=== PATIENT | male | born 1945 | race American Indian/Alaskan Native ===

== ENCOUNTER 2016-10-05 12:48 | Emergency (ER) | payer MEDICARE ==
--- NOTE | 2016-10-05 13:59 | Emergency Department Report ---
Chief Complaint: Medical Clearance Stated Complaint: PNEUMONIA Time Seen by Provider: 10/05/16 13:53 - HPI History of Present Illness: 71-year-old male comes in by referral of Dr. Shahab Flower for diagnosis of pneumonia with pleuritic Chest pain, patient has a past medical history of CVA diabetes and hypertension. Patient and reports that he has been having cough chest pain with cough shortness of breathing. Denies any fever or chills. - Exam Vital Signs: Vital Signs 10/05/16 13:27 Temperature 98.0 F Pulse Rate 73 Respiratory 20 Rate Blood Pressure 148/85 O2 Sat by Pulse 98 Oximetry Physical Exam: Patient is alert and oriented, respiratory clear to auscultation pulse cardiovascular but the rate rhythm there is no chest wall tenderness MSE screening note: Focused history and physical exam performed. Due to findings the following was ordered: Patient's been evaluated by MSE provider. We will order a chest x-ray CBC BMP patient be evaluated in the main ER ED Disposition for MSE Condition: Stable
[2016-10-05 15:04] LABS: Hematocrit 41.2 % (35.5-45.6); Hemoglobin 14.3 gm/dl (11.8-15.2); Mean Corpuscular HGB Conc 35 % (32-34); Mean Corpuscular Hemoglobin 30 pg (28-32); Mean Corpuscular Volume 86 fl (84-94); Platelet Count 183 K/mm3 (140-440); Red Blood Count 4.79 M/mm3 (3.65-5.03); Red Cell Distribution Width 13.6 % (13.2-15.2)
[2016-10-05 15:11] LABS: BUN/Creatinine Ratio 10.62; Calcium 8.7 mg/dL (8.4-10.2); Chloride 91.9 mmol/L (98-107); Potassium 3.1 mmol/L (3.6-5.0)
--- NOTE | 2016-10-05 15:11 | XRay Report ---
CHEST X-RAY, 2 VIEWS History: Shortness of breath, cough. Findings: Subtle infiltrate is suspected in the middle lobe. Trace right pleural effusion is also identified. The left lung is clear. Normal heart and mediastinal structures. Normal bony thorax. Impression: Subtle right middle lobe opacity and trace right pleural effusion. Correlate for early pneumonia.
--- NOTE | 2016-10-06 00:43 | Emergency Department Report ---
ED General Adult HPI - General Chief complaint: Medical Clearance Stated complaint: PNEUMONIA Time Seen by Provider: 10/05/16 13:53 Source: patient, family Mode of arrival: Wheelchair Limitations: Physical Limitation - History of Present Illness Initial comments: Patient is a 71-year-old male with history of hypertension, diabetes, CVA with right-sided residual weakness using a walker at baseline resulting today because of cough. Patient went and saw his primary care doctor who heard an abnormality on his lung exam and sent him here for evaluation. Patient has not been having any fevers but yesterday had some chills, has a cough that is occasionally productive. Also has chest pain on the right side when he coughs. Severity scale (0 -10): 0 - Related Data Previous Rx's Medication Instructions Recorded Last Taken Type Aspirin [Aspirin TAB] 325 mg PO QDAY #30 tablet 05/30/15 Unknown Rx Simvastatin [Zocor TAB] 20 mg PO QHS #30 tablet 05/30/15 Unknown Rx Acetaminophen [Acetaminophen TAB] 650 mg PO Q4H PRN #1 tablet 06/10/15 Unknown Rx Bisacodyl [Dulcolax suppos] 10 mg WI QDAY PRN #1 supp.rect 06/10/15 Unknown Rx Enoxaparin [Lovenox] 40 mg SUB-Q QDAY syringe 06/10/15 Unknown Rx Famotidine [Pepcid] 20 mg PO BID tablet 06/10/15 Unknown Rx Hydrochlorothiazide [HCTZ] 25 mg PO QDAY capsule 06/10/15 Unknown Rx Insulin Aspart Prot/Aspart 10 units SUB-Q QPMDIAB units 06/10/15 Unknown Rx [NovoLOG Mix 70/30 VIAL] Insulin Aspart Prot/Aspart 20 units SUB-Q QAMDIAB units 06/10/15 Unknown Rx [NovoLOG Mix 70/30 VIAL] Insulin Glulisine [Apidra] 0 units SUB-Q ACHS units 06/10/15 Unknown Rx Lisinopril [Zestril TAB] 40 mg PO QDAY tablet 06/10/15 Unknown Rx Metoprolol [Lopressor TAB] 50 mg PO BID tablet 06/10/15 Unknown Rx Sennosides Tab [Senokot] 8.6 mg PO Q12H PRN #1 tablet 06/10/15 Unknown Rx hydrALAZINE [Apresoline TAB] 100 mg PO TID tab 06/10/15 Unknown Rx Acetaminophen [Acetaminophen TAB] 650 mg PO Q6HR PRN #16 tablet 10/06/16 Unknown Rx Levofloxacin [Levaquin TAB] 750 mg PO QDAY #6 tablet 10/06/16 Unknown Rx Allergies Allergy/AdvReac Type Severity Reaction Status Date / Time No Known Allergies Allergy Verified 05/25/15 18:15 ED Review of Systems ROS: Stated complaint: PNEUMONIA Other details as noted in HPI Comment: All other systems reviewed and negative Constitutional: chills. denies: fever Respiratory: cough. denies: shortness of breath Cardiovascular: chest pain. denies: palpitations Gastrointestinal: denies: vomiting Genitourinary: denies: frequency Skin: denies: rash ED Past Medical Hx - Past Medical History Hx Hypertension: Yes Hx CVA: Yes Hx Diabetes: Yes Hx HIV: No - Social History Smoking Status: Never Smoker Substance Use Type: None - Medications Home Medications: Home Medications Medication Instructions Recorded Confirmed Last Taken Type Aspirin [Aspirin TAB] 325 mg PO QDAY #30 tablet 05/30/15 05/30/15 Unknown Rx Simvastatin [Zocor TAB] 20 mg PO QHS #30 tablet 05/30/15 05/30/15 Unknown Rx Acetaminophen [Acetaminophen TAB] 650 mg PO Q4H PRN #1 tablet 06/10/15 Unknown Rx Bisacodyl [Dulcolax suppos] 10 mg WI QDAY PRN #1 supp.rect 06/10/15 Unknown Rx Enoxaparin [Lovenox] 40 mg SUB-Q QDAY syringe 06/10/15 Unknown Rx Famotidine [Pepcid] 20 mg PO BID tablet 06/10/15 Unknown Rx Hydrochlorothiazide [HCTZ] 25 mg PO QDAY capsule 06/10/15 Unknown Rx Insulin Aspart Prot/Aspart 10 units SUB-Q QPMDIAB units 06/10/15 Unknown Rx [NovoLOG Mix 70/30 VIAL] Insulin Aspart Prot/Aspart 20 units SUB-Q QAMDIAB units 06/10/15 Unknown Rx [NovoLOG Mix 70/30 VIAL] Insulin Glulisine [Apidra] 0 units SUB-Q ACHS units 06/10/15 Unknown Rx Lisinopril [Zestril TAB] 40 mg PO QDAY tablet 06/10/15 Unknown Rx Metoprolol [Lopressor TAB] 50 mg PO BID tablet 06/10/15 Unknown Rx Sennosides Tab [Senokot] 8.6 mg PO Q12H PRN #1 tablet 06/10/15 Unknown Rx hydrALAZINE [Apresoline TAB] 100 mg PO TID tab 06/10/15 Unknown Rx Acetaminophen [Acetaminophen TAB] 650 mg PO Q6HR PRN #16 tablet 10/06/16 Unknown Rx Levofloxacin [Levaquin TAB] 750 mg PO QDAY #6 tablet 10/06/16 Unknown Rx ED Physical Exam - General Limitations: Physical Limitation General appearance: alert, in no apparent distress - Eye Eye exam: Present: normal appearance - ENT ENT exam: Present: normal orophraynx - Respiratory Respiratory exam: Present: other (right lower lung field with crackles, no respiratory distress, saturating 98% on room air). Absent: respiratory distress - Cardiovascular Cardiovascular Exam: Present: regular rate, normal rhythm - GI/Abdominal GI/Abdominal exam: Present: soft. Absent: distended, tenderness - Neurological Exam Neurological exam: Present: alert - Psychiatric Psychiatric exam: Present: normal affect ED Course Vital Signs 10/05/16 10/05/16 10/06/16 13:27 23:26 00:51 Temperature 98.0 F 99.4 F Pulse Rate 73 81 97 H Respiratory 20 18 33 H Rate Blood Pressure 148/85 Blood Pressure 166/96 [Left] O2 Sat by Pulse 98 98 99 Oximetry 10/06/16 10/06/16 10/06/16 00:59 01:00 02:00 Temperature 99.2 F Pulse Rate 95 H 96 H 124 H Respiratory 26 H 29 H 24 Rate Blood Pressure 137/93 137/93 Blood Pressure 188/94 [Left] O2 Sat by Pulse 98 97 97 Oximetry 10/06/16 10/06/16 03:00 03:44 Temperature Pulse Rate 115 H 121 H Respiratory 29 H 25 H Rate Blood Pressure 137/93 137/93 Blood Pressure [Left] O2 Sat by Pulse 95 97 Oximetry - Consultations Consultation #1: 10/06/16 01:[address] Gudino, patient's primary care doctor, office however it is way and we were unable to get in touch with him. A message was left for him. ED Medical Decision Making - Lab Data Result diagrams: 10/05/16 14:38 10/05/16 14:38 - Medical Decision Making Labs show some electrolyte abnormalities, hypokalemia, hyponatremia, mild renal failure, hyperglycemia IV fluids, potassium and magnesium ordered Patient is not hypoxic and in no respiratory distress. Should be a good candidate for outpatient therapy. A dose of IV levofloxacin has been ordered here. Will go home on levofloxacin Rx. The reason for this is that the patient has multiple comorbidities. Patient does not meet criteria for hospitalization at this time and can attempt outpatient therapy. Explained importance of returning if symptoms significantly worsen. 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 ED Disposition Clinical Impression: Community acquired pneumonia, Hypokalemia Disposition: DISCHARGED TO HOME OR SELFCARE Is pt being admited?: No Does the pt Need Aspirin: No Condition: Stable Instructions: Bacterial Pneumonia (ED) Additional Instructions: Please follow up with your primary care doctor, Dr. Gardner, return to the emergency room if you have significant shortness of breath, chest pain, palpitations or any new or worsening symptoms. Prescriptions: Acetaminophen [Acetaminophen TAB] 650 mg PO Q6HR PRN #16 tablet PRN Reason: Pain Levofloxacin [Levaquin TAB] 750 mg PO QDAY #6 tablet Referrals: AKTIA GARDNER MD [Primary Care Provider] - 3-5 Days
[2016-10-06] MEDS ORDERED: NACL 0.9% 1000 ML 1,000 ML IV ONE (00:45)
[2016-10-06] MEDS ORDERED: K-DUR PO ONE (00:45)
[2016-10-06] MEDS ORDERED: MAGNESIUM SULFATE 1 GM in NACL 0.9% 50 ML IV ONE (00:45)
[2016-10-06] MEDS ORDERED: LEVAQUIN 750MG/150ML 150 ML IV ONE (00:48)
[2016-10-06] MEDS ORDERED: MAGNESIUM SULFATE ONE (01:03)
[2016-10-06 03:48] VITALS: BP 137/93
== END 2016-10-06 04:09 | disposition home or self-care (01) ==
LOC: ED 12:48
DX: J18.9 Pneumonia, unspecified organism (principal); E87.6 Hypokalemia; I63.9 Cerebral infarction, unspecified; E11.9 Type 2 diabetes mellitus without complications; I10 Essential (primary) hypertension; Z79.4 Long term (current) use of insulin; Z79.82 Long term (current) use of aspirin
CPT/HCPCS: 36415; 71020; 80048; 85027; 93005; 93010; 96365; 96366; 96368; 99284; J1956; J3475; J7030

== ENCOUNTER 2018-05-07 21:36 | Inpatient (IN) | payer MEDICARE ==
[2018-05-07 22:29] LABS: Basophils % (Auto) 0.4 % (0.0-1.8); Eosinophils # (Auto) 0.1 K/mm3 (0.0-0.4); Eosinophils % (Auto) 0.8 % (0.0-4.3); Hematocrit 39.8 % (35.5-45.6); Lymphocytes # (Auto) 2.6 K/mm3 (1.2-5.4); Lymphocytes % (Auto) 20.6 % (13.4-35.0); Mean Corpuscular HGB Conc 35 % (32-34); Mean Corpuscular Hemoglobin 32 pg (28-32); Mean Corpuscular Volume 91 fl (84-94); Monocytes # (Auto) 1.2 K/mm3 (0.0-0.8); Monocytes % (Auto) 9.6 % (0.0-7.3); Red Blood Count 4.38 M/mm3 (3.65-5.03); Red Cell Distribution Width 12.7 % (13.2-15.2)
[2018-05-07 22:39] LABS: BUN/Creatinine Ratio 15; Blood Urea Nitrogen 29 mg/dL (9-20); Calcium 9.2 mg/dL (8.4-10.2); Hemolysis Index 12
--- NOTE | 2018-05-07 23:00 | XRay Report ---
FINAL REPORT EXAM: XR CHEST ROUTINE 2V HISTORY: Shortness of breath TECHNIQUE: PA and lateral views of the chest Comparison: Chest x-ray dated March 16, 2018 FINDINGS: There is bilateral hypoinflation. There has been interval development of prominence of the interstitial markings in both lungs. There is no evidence of focal infiltrate, pneumothorax or pleural fluid collection. The cardiac silhouette is enlarged similar in appearance to the previous study. The thoracic aorta is mildly tortuous. The bony structures are unremarkable IMPRESSION: 1. Hypoinflation with interval development of prominence of the interstitial markings in both lungs. Infectious and noninfectious etiologies, to include CHF, need to be considered. 2. Enlarged cardiac silhouette. This was also demonstrated on the previous study.
[2018-05-07 23:12] LABS: Platelet Count 268 K/mm3 (140-440)
--- NOTE | 2018-05-08 00:30 | Emergency Department Report ---
HPI - General Chief Complaint: Dyspnea/Respdistress Time Seen by Provider: 05/08/18 00:15 - HPI HPI: Room 4 The patient is a 72-year-old male presented with a chief complaint of nausea and vomiting. Family states upon the patient in today because he developed nausea and vomiting today and at times his respirations appear unlabored. The patient acknowledges he's had occasional shortness of breath for 1 day. Patient denies any form of pain or fever. The patient currently denies nausea. Location: [See above] Duration: One day Quality: nausea Severity: Moderate Modifying factors: [see above] Context: [see above] Mode of transportation: [not driving] ED Past Medical Hx - Past Medical History Hx Hypertension: Yes Hx CVA: Yes Hx Heart Attack/AMI: Yes (Heart blockage) Hx Diabetes: Yes Additional medical history: BPH - Surgical History Past Surgical History?: No - Family History Family history: no significant - Social History Smoking Status: Never Smoker Substance Use Type: Alcohol (occasional) - Medications Home Medications: Home Medications Medication Instructions Recorded Confirmed Last Taken Type Aspirin [Aspirin TAB] 325 mg PO QDAY #30 tablet 05/30/15 03/16/18 Unknown Rx Simvastatin [Zocor TAB] 20 mg PO QHS #30 tablet 05/30/15 03/16/18 Unknown Rx Lisinopril [Zestril TAB] 40 mg PO QDAY tablet 06/10/15 03/16/18 Unknown Rx hydroCHLOROthiazide [HCTZ] 25 mg PO QDAY capsule 06/10/15 03/16/18 Unknown Rx Clopidogrel [Plavix] 75 mg PO QDAY 03/16/18 03/16/18 Unknown History Tamsulosin [Flomax] 0.4 mg PO QDAY 03/16/18 03/16/18 Unknown History Detemir (Nf) [Levemir (Nf)] 50 unit SQ QAM #1 vial 03/19/18 Unknown Rx Insulin Glargine [Lantus VIAL] 50 units SUB-Q QHS #1 vial 03/19/18 Unknown Rx Lispro Insulin [Humalog] 5 unit SQ AC #1 vial 03/19/18 Unknown Rx ED Review of Systems ROS: Stated complaint: SOB Other details as noted in HPI Constitutional: no symptoms reported Eyes: denies: eye pain ENT: denies: throat pain Respiratory: shortness of breath Cardiovascular: denies: chest pain Endocrine: no symptoms reported Gastrointestinal: nausea, vomiting. denies: abdominal pain Genitourinary: denies: dysuria Musculoskeletal: denies: back pain Neurological: denies: headache Physical Exam - Physical Exam Vital Signs: Vital Signs 05/07/18 05/07/18 21:42 21:56 Temperature 99.0 F 99 F Pulse Rate 88 88 Respiratory 18 18 Rate Blood Pressure 138/81 Blood Pressure 138/81 [Left] O2 Sat by Pulse 97 97 Oximetry Physical Exam: GENERAL: The patient is well-developed well-nourished male sitting on stretcher not appearing to be in acute distress. [] HEENT: Normocephalic. Atraumatic. Extraocular motions are intact. Patient has moist mucous membranes. NECK: Supple. Trachea midline CHEST/LUNGS: Clear to auscultation. There is no respiratory distress noted. HEART/CARDIOVASCULAR: Regular. There is no tachycardia. There is no gallop rub or murmur. ABDOMEN: Abdomen is soft, nontender. Patient has normal bowel sounds. There is no abdominal distention. SKIN: There is no rash. There is no edema. There is no diaphoresis. NEURO: The patient is awake, alert, and oriented. The patient is cooperative. The patient has no focal neurologic deficits. The patient has normal speech. Cranial nerves II through XII grossly intact, no drift. Casing Cooker equal bilaterally (5+/5+) MUSCULOSKELETAL: There is no evidence of acute injury. ED Course Vital Signs 05/07/18 05/07/18 21:42 21:56 Temperature 99.0 F 99 F Pulse Rate 88 88 Respiratory 18 18 Rate Blood Pressure 138/81 Blood Pressure 138/81 [Left] O2 Sat by Pulse 97 97 Oximetry ED Medical Decision Making - Lab Data Result diagrams: 05/07/18 22:09 05/07/18 22:09 Laboratory Tests 05/07/18 05/07/18 22:09 22:09 WBC 12.6 H RBC 4.38 Hgb 14.0 Hct 39.8 MCV 91 MCH 32 MCHC 35 H RDW 12.7 L Plt Count 268 Lymph % (Auto) 20.6 [place] % (Auto) 9.6 H Eos % (Auto) 0.8 Baso % (Auto) 0.4 Lymph # 2.6 [place] # 1.2 H Eos # 0.1 Baso # 0.0 Seg Neutrophils % 68.6 Seg Neutrophils # 8.6 H Sodium 120 L Potassium 3.7 Chloride 84.0 L Carbon Dioxide 22 Anion Gap 18 BUN 29 H Creatinine 2.0 H Estimated GFR 40 BUN/Creatinine Ratio 15 Glucose 123 H Calcium 9.2 Troponin T < 0.010 - EKG Data -: EKG Interpreted by Me Rate: normal - EKG Data When compared to previous EKG there are: previous EKG unavailable Interpretation: other (accelerated junctional rhythm at 84 bpm) - Radiology Data Radiology results: report reviewed (chest x-ray), image reviewed (chest x-ray) interpreted by me: Chest x-ray- no definite focal infiltrates or pneumothorax [facility] [address] [place] [address] XRay Report Signed Patient: DENISE KAY MR#: [id number] : 1945 Acct: [id number] Age/Sex: 72 / M ADM Date: 05/07/18 Loc: ED Attending Dr: Ordering Physician: RAJ CASE MD Date of Service: 05/07/18 Procedure(s): XR chest routine 2V Accession Number(s): [id number] cc: RAJ CASE MD Fluoro Time In Minutes: FINAL REPORT EXAM: XR CHEST ROUTINE 2V HISTORY: Shortness of breath TECHNIQUE: PA and lateral views of the chest Comparison: Chest x-ray dated March 16, 2018 FINDINGS: There is bilateral hypoinflation. There has been interval development of prominence of the interstitial markings in both lungs. There is no evidence of focal infiltrate, pneumothorax or pleural fluid collection. The cardiac silhouette is enlarged similar in appearance to the previous study. The thoracic aorta is mildly tortuous. The bony structures are unremarkable IMPRESSION: 1. Hypoinflation with interval development of prominence of the interstitial markings in both lungs. Infectious and noninfectious etiologies, to include CHF, need to be considered. 2. Enlarged cardiac silhouette. This was also demonstrated on the previous study. Transcribed By: ED Dictated By: JOHNSON CURRAN MD Electronically Authenticated By: JOHNSON CURRAN MD Signed Date/Time: 05/07/182258 DD/ 58 TD/TT: 05/07/182258 - Differential Diagnosis CHF, bronchitis Critical care attestation.: If time is entered above; I have spent that time in minutes in the direct care of this critically ill patient, excluding procedure time. ED Disposition Clinical Impression: Hyponatremia, Nausea & vomiting Disposition: OP ADMIT IP TO THIS HOSP Is pt being admited?: Yes Does the pt Need Aspirin: No Condition: Fair Time of Disposition: 00:33 (hospitalist paged (Dr Campbell))
[2018-05-08] MEDS ORDERED: D50W (25GM) Syringe IV PRN (02:06)
[2018-05-08 03:20] LABS: Calcium 9.1 mg/dL (8.4-10.2)
--- NOTE | 2018-05-08 05:57 | History and Physical Report ---
CHIEF COMPLAINT: Shortness of breath. HISTORY OF PRESENT ILLNESS: The patient is a 72-year-old male who was having difficulty breathing and also had nausea and vomiting at home. There was no history of chest pain, no history of fever or chills; however, the pointed that the patient has had swelling in the ankles. There is no history of dizziness. The patient was brought to the Emergency Room for evaluation. PAST MEDICAL HISTORY: Pertinent for hypertension, cerebrovascular accident, coronary artery disease, diabetes mellitus, benign prostatic hypertrophy. PAST SURGICAL HISTORY: Unremarkable. FAMILY HISTORY: Family history is not significant. SOCIAL HISTORY: The patient does not smoke, drinks alcohol occasionally, and does not use illicit drugs. MEDICATIONS: The patient is on aspirin 325 mg by mouth daily, Zocor 20 mg by mouth at bedtime, lisinopril 40 mg by mouth daily, hydrochlorothiazide 25 mg by mouth daily, Plavix 75 mg by mouth daily, tamsulosin or Flomax 0.4 mg by mouth daily, Levemir 50 units subcutaneously in the morning, Lantus insulin 50 units subcutaneously at bedtime, lisinopril 5 units subcutaneously a.c. ALLERGIES: There are no known drug allergies. REVIEW OF SYSTEMS: CONSTITUTIONAL: There is no fever, no chills, no diaphoresis. HEENT: There is no headache or sore throat. CARDIOVASCULAR: There is no chest pain or orthopnea. RESPIRATORY: Shortness of breath present. There is no cough. GASTROINTESTINAL: Nausea and vomiting present. No abdominal pain, diarrhea, or constipation. NEUROLOGICAL SYSTEM: There is no numbness, no dizziness, no altered mental status. MUSCULOSKELETAL: There is swelling in the ankles but no joint pain. DERMATOLOGICAL: There is no skin rash or itching. GENITOURINARY: There is no dysuria, hematuria, or flank pain. Rest of system review is normal. PHYSICAL EXAMINATION: GENERAL: At the time of exam, the patient was found to be alert, oriented x 3, not in acute distress. VITAL SIGNS: Vital signs at the time of initial presentation shows temperature of 99 degrees Fahrenheit, pulse of 88, respiration 18, blood pressure 138/81, O2 sat of 97% on room air. HEENT: Showed pupils to be equal, round, reactive to light and accommodation. Extraocular muscles are intact. NECK: Supple with no JVD or carotid bruit. CARDIOVASCULAR: Showed normal first and second heart sounds with no gallops or murmurs. The patient has 1+ pitting edema. RESPIRATORY: Showed good air entry on both sides of the lungs with no abnormal breath sounds. GASTROINTESTINAL: Showed abdomen to be full, soft, nontender with no organomegaly or rigidity elicited. Bowel sound is normal. NEUROLOGIC: Showed no new focal deficit. MUSCULOSKELETAL: Showed ankle swelling but no joint tenderness. DERMATOLOGICAL: Showed no skin rash. GENITOURINARY: Showed no costovertebral angle tenderness. PERTINENT LABORATORY DATA AND IMAGING STUDIES: The patient had CBC done with elevated white count of 12,600 with normal hemoglobin, normal hematocrit, and CBC differential that shows elevated monocyte count of 9.6% and elevated segmented neutrophils of 8.6%. The patient's chemistry showed low sodium of 120, normal potassium level, low chloride of 84, and elevated BUN of 29 with elevated creatinine of 2.0. Rest of the patient's chemistry was unremarkable. Troponin level was normal and brain natriuretic peptide level normal. IMAGING STUDIES: The patient had chest x-ray done that shows ____ with interval development of prominence of the interstitial markings in both lungs. The radiologist said that infectious and noninfectious etiologies should be considered and also the patient said to include congestive heart failure. There is also finding of enlarged cardiac silhouette, which the radiologist said was also demonstrated on the previous x-ray studies. DIAGNOSES: 1. Dyspnea. 2. Hyponatremia. 3. Renal insufficiency. 4. Congestive heart failure. PLAN: 1. The patient will be admitted to telemetry. 2. The patient will have complete echocardiogram done this morning. 3. The patient will have basic metabolic panel done at 3 a.m. to track sodium level and also at 6:00 a.m. this morning. 4. The patient will have cardiac enzymes involving troponin, total CK, and CK-MB checked q. 6 hours x 2 more levels. 5. The patient will be on 2 g sodium consistent carbohydrate diet. 6. The patient will be on Accu-Chek a.c. and at bedtime, followed by low-dose sliding scale using regular insulin coverage. 7. The patient will be on his home medications as shown in the medication reconciliation section. 8. The patient will have Nephrology consult with Dr. Jones this morning. JOB# [id number] OCN/NTS
[2018-05-08 06:21] LABS: Calcium 9.2 mg/dL (8.4-10.2)
[2018-05-08 06:26] LABS: Creatine Kinase MB 5.9 ng/mL (0.0-4.0)
--- NOTE | 2018-05-08 07:37 | Consultation ---
History of Present Illness - Reason for Consult Consult date: 05/08/18 acute renal failure, hyponatremia - History of Present Illness Pleasant 72 y/o [place] male with PMHx significant for HTN, CVA, DM, BPH presented to the ER secondary to worsening nausea, vomiting, weakness and shortness of breath that had been worsening over the course of 2 days. He was found to be in acute renal failure and significantly hyponatremic for which a nephrology consult had been called. He had a chest xray done in the ED that reported increased interstitial markings and his had commented on worsening lower extremity/ankle swelling. He is pending a ECHO this am. Patient is not aware of his previous renal function at baseline. He is not aware of his previous HgbA1c. He states that his monitors his BP and blood sugars at home. is not at bedside for further questions at this time. He denies any urinary symptoms and states that he has felt he urinates normally. Past History Past Medical History: diabetes, hypertension, stroke, other (BPH) Past Surgical History: No surgical history Social history: , lives with family, smoking Family history: no significant family history Medications and Allergies Allergies Allergy/AdvReac Type Severity Reaction Status Date / Time No Known Allergies Allergy Verified 03/16/18 15:46 Home Medications Medication Instructions Recorded Confirmed Last Taken Type Aspirin [Aspirin TAB] 325 mg PO QDAY #30 tablet 05/30/15 05/08/18 Unknown Rx Simvastatin [Zocor TAB] 20 mg PO QHS #30 tablet 05/30/15 05/08/18 Unknown Rx Lisinopril [Zestril TAB] 40 mg PO QDAY tablet 06/10/15 05/08/18 Unknown Rx hydroCHLOROthiazide [HCTZ] 25 mg PO QDAY capsule 06/10/15 05/08/18 Unknown Rx Clopidogrel [Plavix] 75 mg PO QDAY 03/16/18 05/08/18 Unknown History Tamsulosin [Flomax] 0.4 mg PO QDAY 03/16/18 05/08/18 Unknown History Cholecalciferol (Vitamin D3) 1,000 unit PO DAILY 05/08/18 05/08/18 Unknown History [Vitamin D3] Cholecalciferol (Vitamin D3) 50,000 unit PO QWEEK 05/08/18 05/08/18 Unknown History [Vitamin D3] Insulin NPH Hum/Reg Insulin Hm 18 units SUB-Q QAM 05/08/18 05/08/18 Unknown History [Novolin 70-30 100 Unit/ml Vial] Potassium Citrate [Potassium 20 meq PO DAILY 05/08/18 05/08/18 Unknown History Citrate ER] Spironolactone 25 mg PO DAILY 05/08/18 05/08/18 Unknown History amLODIPine [Norvasc] 10 mg PO DAILY 05/08/18 05/08/18 Unknown History Active Meds: Active Medications Amlodipine Besylate (Norvasc) 10 mg PO DAILY [facility] Aspirin (Aspirin) 325 mg PO QDAY [facility] Clopidogrel Bisulfate (Plavix) 75 mg PO QDAY [facility] Dextrose (D50w (25gm) Syringe) 50 ml IV PRN PRN PRN Reason: Hypoglycemia Ergocalciferol (Vitamin D2) 50,000 unit PO Mo [facility] Heparin Sodium (Porcine) (Heparin) 5,000 unit SUB-Q Q12HR [facility] Insulin Human Regular (Humulin R) 0 units SUB-Q AC [facility]; Protocol Insulin Human Regular (Humulin R) 0 units SUB-Q QHS [facility]; Protocol Lisinopril (Zestril) 40 mg PO QDAY [facility] Pneumococcal Polyvalent Vaccine (Pneumovax 23) 0.5 ml IM .ONCE ONE Stop: 05/08/18 12:01 Pravastatin Sodium (Pravachol) 40 mg PO QHS [facility] Spironolactone (Aldactone) 25 mg PO DAILY [facility] Tamsulosin HCl (Flomax) 0.4 mg PO QDAY [facility] Review of Systems All systems: negative Constitutional: fatigue, weakness, poor appetite Gastrointestinal: nausea, vomiting Exam - Vital Signs Vital signs: Vital Signs Temp Pulse Resp BP Pulse Ox 99.0 F 88 18 138/81 97 05/07/18 21:42 05/07/18 21:42 05/07/18 21:42 05/07/18 21:42 05/07/18 21:42 - General Appearance General appearance: well-nourished, appears stated age, fatigue EENT: ATNC, PERRL Neck: Present: neck supple, trachea midline Respiratory: Wheezes Heart: regular, S1S2 Gastrointestinal: Present: normal, normoactive bowel sounds Integumentary: no rash, warm and dry Neurologic: no focal deficit, no asterixis Musculoskeletal: Present: other (mild non pitting edema in lower extremities, with slight pitting in right ankle. ) Results - Lab Results 05/07/18 22:09 05/08/18 05:19 Most recent lab results Calcium 9.2 mg/dL (8.4-10.2) 05/08/18 05:19 Assessment and Plan - Patient Problems (1) NORMA (acute kidney injury) Current Visit: No Status: Acute Plan to address problem: Possible pre-renal in etiology based on symptoms. He is pending a ECHO this am, and if there is no evidence of volume overload, would suggest gentle hydration. Avoid nephrotoxins, maintain MAP >65mmHg. Would recommend to hold off on ACEi in the setting of his NORMA until his renal function stabilizes to baseline. (2) Hyponatremia Current Visit: Yes Status: Acute Plan to address problem: His symptoms of nausea can be a stimulus for ADH secretion that can worsen the hyponatremia. He is also on chronic HCTZ therapy. Would recommend that we obtain Urine electrolytes. Would also obtain TSH levels. Follow up on ECHO readings. If ECHO shows increased pressures/volume would suggest one dose of lasix 20 mg IV x1. Patient seems more euvolemic on my physical examination this am. (3) Nausea & vomiting Current Visit: Yes Status: Acute Plan to address problem: Management per primary team. Control of his nausea should also continue to improve his hyponatremia. (4) Diabetes mellitus Current Visit: No Status: Chronic Qualifiers: Diabetes mellitus type: type 2 Diabetes mellitus complication status: without complication Qualified Code(s): E11.9 - Type 2 diabetes mellitus without complications Plan to address problem: Diabetes management per primary team recommendations. (5) HTN (hypertension) Current Visit: No Status: Chronic Qualifiers: Hypertension type: essential hypertension Qualified Code(s): I10 - Essential (primary) hypertension Plan to address problem: In the setting of his NORMA, I would suggest that we hold off on ACEi. He is also on HCTZ, which can also be a etiology of his hyponatremia, which may also be best to hold for now. In this setting, would continue on aldactone and amlodipine and monitor.
[2018-05-08 07:40] LABS: Creatine Kinase MB 5.6 ng/mL (0.0-4.0)
[2018-05-08] MEDS: HumuLIN R SUB-Q SCH ×4 (08:28→22:09)
[2018-05-08] MEDS: PLAVIX PO SCH (09:45)
[2018-05-08] MEDS: FLOMAX PO SCH (09:45)
[2018-05-08] MEDS: NORVASC PO SCH (09:46)
[2018-05-08] MEDS: ALDACTONE PO SCH (09:46)
[2018-05-08] MEDS: ASPIRIN PO SCH (09:46)
[2018-05-08] MEDS: ZESTRIL PO SCH (09:46)
[2018-05-08] MEDS: HEPARIN SUB-Q SCH ×2 (09:47→22:00)
[2018-05-08] MEDS ORDERED: VITAMIN D2 PO SCH (10:00)
[2018-05-08] MEDS ORDERED: NON-FORMULARY (Cholecalciferol (Vitamin D3) [Vitamin D3] 1,000 UNIT) PO SCH (10:00)
[2018-05-08] MEDS ORDERED: PNEUMOVAX 23 IM ONE (12:00)
--- NOTE | 2018-05-08 12:30 | Consultation ---
History of Present Illness Consult date: 05/08/18 Consult reason: other (2nd degree AVB) History of present illness: This is a 72 year old male who presented with nausea, vomiting and shortness of breath, found severely hyponatremic, sodium of 120 and with acute renal failure , BUN/creatinine 20/2.0. There is also a WBC of 12.6. Chest x-ray reports cardiomegaly with bilateral hypoinflated lungs. A cardiac consultation was requested for abnormal ECG. His ECG is showing a second degree heart block with a right bundle branch block. He has a normal TSH. There were no reports of chest pain or palpitations. There were no reports of syncope. Of note, patient was discharged from this hospital a month ago with symptomatic bradycardia. 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 Further cardiac evaluation with an echocardiogram revealed a normal left ventricular systolic function, ejection fraction 65%. He had a normal TSH, beta blockers were discontinued and his bradycardia resolved. He was discharged home with recommendations to follow up with EP as an outpatient. Patient reports he has followed with his primary cuff matcher but has yet to see EP. He wore a holter monitor that documents primarily a sinus rhythm with second degree heart block, mobitz I. Past History Social history: , lives with family Family history: no significant family history Medications and Allergies Allergies Allergy/AdvReac Type Severity Reaction Status Date / Time No Known Allergies Allergy Verified 03/16/18 15:46 Home Medications Medication Instructions Recorded Confirmed Last Taken Type Aspirin [Aspirin TAB] 325 mg PO QDAY #30 tablet 05/30/15 05/08/18 Unknown Rx Simvastatin [Zocor TAB] 20 mg PO QHS #30 tablet 05/30/15 05/08/18 Unknown Rx Lisinopril [Zestril TAB] 40 mg PO QDAY tablet 06/10/15 05/08/18 Unknown Rx hydroCHLOROthiazide [HCTZ] 25 mg PO QDAY capsule 06/10/15 05/08/18 Unknown Rx Clopidogrel [Plavix] 75 mg PO QDAY 03/16/18 05/08/18 Unknown History Tamsulosin [Flomax] 0.4 mg PO QDAY 03/16/18 05/08/18 Unknown History Cholecalciferol (Vitamin D3) 1,000 unit PO DAILY 05/08/18 05/08/18 Unknown History [Vitamin D3] Cholecalciferol (Vitamin D3) 50,000 unit PO QWEEK 05/08/18 05/08/18 Unknown History [Vitamin D3] Insulin NPH Hum/Reg Insulin Hm 18 units SUB-Q QAM 05/08/18 05/08/18 Unknown History [Novolin 70-30 100 Unit/ml Vial] Potassium Citrate [Potassium 20 meq PO DAILY 05/08/18 05/08/18 Unknown History Citrate ER] Spironolactone 25 mg PO DAILY 05/08/18 05/08/18 Unknown History amLODIPine [Norvasc] 10 mg PO DAILY 05/08/18 05/08/18 Unknown History Active Meds: Active Medications Amlodipine Besylate (Norvasc) 10 mg PO DAILY [facility] Last Admin: 05/08/18 09:46 Dose: 10 mg Aspirin (Aspirin) 325 mg PO QDAY [facility] Last Admin: 05/08/18 09:46 Dose: 325 mg Clopidogrel Bisulfate (Plavix) 75 mg PO QDAY [facility] Last Admin: 05/08/18 09:45 Dose: 75 mg Dextrose (D50w (25gm) Syringe) 50 ml IV PRN PRN PRN Reason: Hypoglycemia Ergocalciferol (Vitamin D2) 50,000 unit PO Mo [facility] Last Admin: 05/08/18 09:46 Dose: 50,000 unit Heparin Sodium (Porcine) (Heparin) 5,000 unit SUB-Q Q12HR [facility] Last Admin: 05/08/18 09:47 Dose: 5,000 unit Insulin Human Regular (Humulin R) 0 units SUB-Q [facility]; Protocol Last Admin: 05/08/18 08:28 Dose: Not Given Insulin Human Regular ([facility] R) [facility]; Protocol Lisinopril (Zestril) 40 mg PO QDAY [facility] Last Admin: 05/08/18 09:46 Dose: 40 mg Pravastatin Sodium (Pravachol) 40 mg PO QHS [facility] Spironolactone (Aldactone) 25 mg PO DAILY [facility] Last Admin: 05/08/18 09:46 Dose: 25 mg Tamsulosin HCl (Flomax) 0.4 mg PO QDAY [facility] Last Admin: 05/08/18 09:45 Dose: 0.4 mg Physical Examination Vital Signs Temp Pulse Resp BP Pulse Ox 99.0 F 88 18 138/81 97 05/07/18 21:42 05/07/18 21:42 05/07/18 21:42 05/07/18 21:42 05/07/18 21:42 General appearance: no acute distress HEENT: Positive: PERRL Cardiac: Positive: Reg Rate and Rhythm Results 05/07/18 22:09 05/08/18 05:19 Cardiac Enzymes 05/08/18 05/08/18 Range/Units 05:19 07:06 CK-MB (CK-2) 5.9 H 5.6 H (0.0-4.0) ng/mL CBC 05/07/18 Range/Units 22:09 WBC 12.6 H (4.5-11.0) K/mm3 RBC 4.38 (3.65-5.03) M/mm3 Hgb 14.0 (11.8-15.2) gm/dl Hct 39.8 (35.5-45.6) % Plt Count 268 (140-440) K/mm3 Lymph # 2.6 (1.2-5.4) K/mm3 [place] # 1.2 H (0.0-0.8) K/mm3 Eos # 0.1 (0.0-0.4) K/mm3 Baso # 0.0 (0.0-0.1) K/mm3 Comprehensive Metabolic Panel 05/07/18 05/08/18 05/08/18 Range/Units 22:09 02:52 05:19 Sodium 120 L 123 L 125 L (137-145) mmol/L Potassium 3.7 3.9 4.1 (3.6-5.0) mmol/L Chloride 84.0 L 86.8 L 87.5 L (98-107) mmol/L Carbon Dioxide 22 23 25 (22-30) mmol/L BUN 29 H 29 H 28 H (9-20) mg/dL Creatinine 2.0 H 2.0 H 1.9 H (0.8-1.5) mg/dL Glucose 123 H 75 72 L (75-100) mg/dL Calcium 9.2 9.1 9.2 (8.4-10.2) mg/dL Assessment and Plan Nausea vomiting 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
[2018-05-08 14:37] LABS: Creatine Kinase MB 4.7 ng/mL (0.0-4.0)
[2018-05-08 17:54] LABS: Chloride, Urine 16.2 mmolL (110-250); Potassium, Urine 38.52 mmol/L
[2018-05-08] MEDS: PRAVACHOL PO SCH (22:00)
--- NOTE | 2018-05-09 07:23 | Progress Note ---
Assessment and Plan - Patient Problems (1) NORMA (acute kidney injury) Current Visit: No Status: Acute Plan to address problem: Possible pre-renal in etiology based on symptoms. Cardiology assessment noted with mention of recent ECHO without evidence of volume overload. Avoid nephrotoxins, maintain MAP >65mmHg. Would recommend to hold off on ACEi in the setting of his NORMA until his renal function stabilizes to baseline. (2) Hyponatremia Current Visit: Yes Status: Acute Plan to address problem: His symptoms of nausea can be a stimulus for ADH secretion that can worsen the hyponatremia. He is also on chronic HCTZ therapy. Urine electrolytes noted, with low sodium and chloride. TSH levels noted. Previous ECHO done recently per cardiology without any significant abnormalities or evidence of volume overload. Will follow up on repeat labs this am. No acute needs for hypertonic solution at this time. Hyponatremia is likely in the setting of NOMRA and pre-renal state. (3) Nausea & vomiting Current Visit: Yes Status: Acute Plan to address problem: Management per primary team. Control of his nausea should also continue to improve his hyponatremia. (4) Diabetes mellitus Current Visit: No Status: Chronic Qualifiers: Diabetes mellitus type: type 2 Diabetes mellitus complication status: without complication Qualified Code(s): E11.9 - Type 2 diabetes mellitus without complications Plan to address problem: Diabetes management per primary team recommendations. His last blood sugars have been >250-300, which if accounted for, further corrects his serum sodium. Will need to obtain better glycemic control. (5) HTN (hypertension) Current Visit: No Status: Chronic Qualifiers: Hypertension type: essential hypertension Qualified Code(s): I10 - Essential (primary) hypertension Plan to address problem: In the setting of his NORMA, I would suggest that we hold off on ACEi. He is also on HCTZ, which can also be a etiology of his hyponatremia, which may also be best to hold for now. In this setting, would continue on aldactone and amlodipine and monitor. Subjective Date of service: 05/09/18 Interval history: No acute issues overnight. Labs pending this am. Serum/urine osm studies noted along with urine elctrolytes. Objective - Vital Signs Vital signs: Vital Signs - 12hr 05/08/18 05/08/18 05/09/18 20:13 22:00 02:34 Temperature 97.8 F 98.6 F Pulse Rate 91 H 91 H Pulse Rate [ 72 From Monitor] Respiratory 18 16 18 Rate Blood Pressure 144/81 128/75 O2 Sat by Pulse 99 100 Oximetry - General Appearance General appearance: well-developed, well-nourished, appears stated age EENT: ATNC, PERRL Neck: no JVD, no thyromegaly, no carotid bruit, supple Respiratory: Present: Clear to Ascultation, Normal Exam Cardiology: regular, S1S2 Gastrointestinal: normal, normoactive bowel sounds Integumentary: no rash, warm and dry Neurologic: no focal deficit, no asterixis Musculoskeletal: other (no edema ) Psychiatric: mood/affect appropriate - Lab 05/07/18 22:09 05/08/18 05:19 Most recent lab results Calcium 9.2 mg/dL (8.4-10.2) 05/08/18 05:19 Urine Sodium 18 mmol/L 05/08/18 17:05 - Allied health notes Allied health notes reviewed: nursing
[2018-05-09] MEDS: HumuLIN R SUB-Q SCH ×3 (10:05→22:32)
[2018-05-09] MEDS: ASPIRIN PO SCH (10:12)
[2018-05-09] MEDS: PLAVIX PO SCH (10:12)
[2018-05-09] MEDS: NORVASC PO SCH (10:17)
[2018-05-09] MEDS: ALDACTONE PO SCH (10:17)
[2018-05-09] MEDS: FLOMAX PO SCH (10:18)
[2018-05-09] MEDS: ZESTRIL PO SCH (10:18)
[2018-05-09] MEDS: HEPARIN SUB-Q SCH ×2 (10:19→22:31)
--- NOTE | 2018-05-09 12:52 | Progress Note ---
Assessment and Plan - Patient Problems (1) Heart block Current Visit: No Status: Acute Plan to address problem: Patient has a sinus rhythm with first-degree AV block, asymptomatic cardiac status, okay for cardiac discharge for follow up with his primary interior mechanic in 1-2 weeks. Subjective Date of service: 05/09/18 Interval history: Patient is comfortable, no cardiac complaints. Telemetry shows a sinus rhythm, first-degree AV block, heart rate 75-80. Objective Vital Signs Temp Pulse Pulse Resp BP Pulse Ox 05/09/18 10:18 77 139/76 05/09/18 10:17 77 139/76 05/09/18 10:00 105 H 77 18 100 05/09/18 07:33 98.5 F 79 18 129/73 99 05/09/18 02:34 98.6 F 18 128/75 05/08/18 22:00 91 H 72 16 100 05/08/18 20:13 97.8 F 91 H 18 144/81 99 05/08/18 13:14 98.6 F 82 18 127/70 97 - Physical Examination General: Appears Well, No Apparent Distress HEENT: Positive: PERRL Neck: Positive: neck supple, trachea midline Cardiac: Positive: Reg Rate and Rhythm Lungs: Positive: clear to auscultation Neuro: Positive: Grossly Intact Abdomen: Positive: Soft Skin: Positive: Clear Extremities: Absent: edema - Labs and Meds Cardiac Enzymes 05/08/18 Range/Units 14:00 CK-MB (CK-2) 4.7 H (0.0-4.0) ng/mL - Allied health notes Allied health notes reviewed: nursing
--- NOTE | 2018-05-09 15:00 | Progress Note ---
Assessment and Plan Assessment and plan: 72-year-old man who presented with nausea and vomiting. PMH: htn, hx of cva, DC,BPH, hx of 1st degree heart block, dm his food service director is Bill and his EP is Dr Eliazar GREEN dc diuretics and CHE, likely due to vasomotor nephropathy underlying cause is likely intractable n/v Hyponatremia continue NS N/V- intractable likely acute gastroenteritis -antiemtics, obtain KUB to r/o SBO -also get CT A/P after if no acute findings on KUB - DM -cont SSI HTN diuretics and CHE-I were dc, optimize bp meds History Interval history: Review of systems Constitutional: No fevers, no malaise, no joint pains CVS: No chest pain, no orthopnea, no dyspnea on exertion, no pedal edema GI: No abdominal pain, no diarrhea, no vomiting, no constipation Respiratory: No shortness of breath, no wheezing, no coughing Hospitalist Physical - Physical exam Narrative exam: General.: Appears well, no distress, nontoxic HEENT: Moist mucous membranes, extraocular muscles intact, no lymphadenopathy Neck: supple Cardiac: S1-S2 heard Lungs: clear to auscultation bilaterally Abdomen: soft , nontender, nondistended, bowel sounds positive Extremities: no edema clubbing or cyanosis Skin: no rash or lesions Neurologic: no gross focal deficits Psych: appropriate behavior, appropriate mood, corporative, judgment intact - Constitutional Vitals: Temp Pulse Resp BP Pulse Ox 98.2 F 76 20 130/67 100 05/09/18 13:19 05/09/18 13:19 05/09/18 13:19 05/09/18 13:19 05/09/18 13:19 General appearance: Present: no acute distress Results - Labs CBC & Chem 7: 05/07/18 22:09 05/09/18 11:57 Labs: Laboratory Last Values WBC 12.6 K/mm3 (4.5-11.0) H 05/07/18 22:09 RBC 4.38 M/mm3 (3.65-5.03) 05/07/18 22:09 Hgb 14.0 gm/dl (11.8-15.2) 05/07/18 22:09 Hct 39.8 % (35.5-45.6) 05/07/18 22:09 MCV 91 fl (84-94) 05/07/18 22:09 MCH 32 pg (28-32) 05/07/18 22:09 MCHC 35 % (32-34) H 05/07/18 22:09 RDW 12.7 % (13.2-15.2) L 05/07/18 22:09 Plt Count 268 K/mm3 (140-440) 05/07/18 22:09 Lymph % (Auto) 20.6 % (13.4-35.0) 05/07/18 22:09 [place] % (Auto) 9.6 % (0.0-7.3) H 05/07/18 22:09 Eos % (Auto) 0.8 % (0.0-4.3) 05/07/18 22:09 Baso % (Auto) 0.4 % (0.0-1.8) 05/07/18 22:09 Lymph # 2.6 K/mm3 (1.2-5.4) 05/07/18 22:09 [place] # 1.2 K/mm3 (0.0-0.8) H 05/07/18 22:09 Eos # 0.1 K/mm3 (0.0-0.4) 05/07/18 22:09 Baso # 0.0 K/mm3 (0.0-0.1) 05/07/18 22:09 Seg Neutrophils % 68.6 % (40.0-70.0) 05/07/18 22:09 Seg Neutrophils # 8.6 K/mm3 (1.8-7.7) H 05/07/18 22:09 Sodium 125 mmol/L (137-145) L 05/08/18 05:19 Potassium 4.1 mmol/L (3.6-5.0) 05/08/18 05:19 Chloride 87.5 mmol/L (98-107) L 05/08/18 05:19 Carbon Dioxide 25 mmol/L (22-30) 05/08/18 05:19 Anion Gap 17 mmol/L 05/08/18 05:19 BUN 28 mg/dL (9-20) H 05/08/18 05:19 Creatinine 1.9 mg/dL (0.8-1.5) H 05/08/18 05:19 Estimated GFR 43 ml/min 05/08/18 05:19 BUN/Creatinine Ratio 15 % 05/08/18 05:19 Glucose 72 mg/dL (75-100) L 05/08/18 05:19 POC Glucose 249 (70-105) H 05/09/18 11:28 Osmolality 281 Mosm/kg 05/08/18 08:36 Calcium 9.2 mg/dL (8.4-10.2) 05/08/18 05:19 Total Creatine Kinase 358 units/L (55-170) H 05/08/18 14:00 CK-MB (CK-2) 4.7 ng/mL (0.0-4.0) H 05/08/18 14:00 CK-MB (CK-2) Rel Index 1.3 (0-4) 05/08/18 14:00 Troponin T < 0.010 ng/mL (0.00-0.029) 05/08/18 14:00 NT-Pro-B Natriuret Pep 82.45 pg/mL (0-900) 05/08/18 Unknown TSH 2.350 mlU/mL (0.270-4.200) 05/08/18 08:36 Urine Osmolality 326 Mosm/kg 05/08/18 17:05 Urine Sodium 18 mmol/L 05/08/18 17:05 Urine Potassium 38.52 mmol/L 05/08/18 17:05 Urine Chloride 16.2 mmolL (110-250) L 05/08/18 17:05
--- NOTE | 2018-05-09 15:57 | XRay Report ---
FINAL REPORT EXAM: XR ABDOMEN 1V AP HISTORY: intractable n/v COMPARISON: CT of the abdomen and pelvis performed on 03/16/2018 TECHNIQUE: Single frontal view of the abdomen FINDINGS: Nonobstructive bowel gas pattern. No free air. No abnormal calcification. No organomegaly. Large amount of stool within the colon. IMPRESSION: Nonobstructive bowel gas pattern. Large amount of stool within the colon.
--- NOTE | 2018-05-09 15:59 | XRay Report ---
FINAL REPORT EXAM: XR CHEST ROUTINE 2V HISTORY: sob COMPARISON: Chest radiograph performed on 05/07/2018 TECHNIQUE: Frontal and lateral views of the chest. FINDINGS: The cardiomediastinal silhouette is normal in appearance. The lungs are clear without focal consolidation. There is no pleural effusion or pneumothorax. There is no acute soft tissue or osseous abnormality. IMPRESSION: No acute cardiopulmonary disease.
[2018-05-09 17:08] LABS: Calcium 9.5 mg/dL (8.4-10.2)
--- NOTE | 2018-05-09 18:03 | Cat Scan Report ---
FINAL REPORT PROCEDURE: CT ABDOMEN PELVIS WO CON TECHNIQUE: Computerized axial tomography of the abdomen and pelvis was performed without intravenous contrast. This study is performed without intravascular contrast material and its sensitivity for abdominal and pelvic pathology, including neoplasms, inflammation, abscess, free fluid, thrombosis, arterial dissection and infarction, is reduced compared with a contrast enhanced study. DLP 902.96 mGy-cm. HISTORY: Intractable nausea and vomiting. COMPARISON: CT scan dated 03/16/2018 FINDINGS: Visualized lower thorax: No significant abnormality. Liver: Normal size and attenuation. Spleen: Normal size and attenuation. Gallbladder and biliary system: Normal. Pancreas: Normal. Adrenals: Normal. Kidneys: 13 mm low-attenuation lesion about superior pole of the left kidney. Stable symmetric likely senescent bilateral perinephric stranding. GI tract: Stomach is mildly distended and fluid-filled. Scattered mildly prominent fluid-filled loops of small bowel without definite transition. Normal caliber air-filled appendix with small foci of high attenuation. These may represent appendicolith. A moderate amount of stool throughout the colon. Focal area of moderate narrowing of the sigmoid colon with gaseous distension proximal to this. Lymph nodes and mesentery: Normal. Vasculature: Moderate atherosclerosis. Bladder: Thick-walled somewhat trabeculated appearing bladder wall. Reproductive organs: Moderate prostatic enlargement. Peritoneum: No free fluid. Musculoskeletal structures: L3-4 minimal vacuum disc change. Tiny multilevel osteophytes. Stable 7 mm sclerotic to lesion in the right anterior acetabulum, with similar smaller sclerotic lesions in the pelvis. These likely represent bone islands. Other: None. IMPRESSION: Low-attenuation left renal lesion, likely cyst. Limited evaluation on non contrasted exam. Stomach mildly distended and fluid-filled. Scattered mildly prominent fluid-filled loops of small bowel without definite transition, felt to more likely represent ileus or enteritis rather than obstruction. Consider attention on follow-up imaging if there is continued clinical concern. Moderate stool throughout the colon, consider constipation. Focal area of moderate narrowing of the sigmoid colon with gaseous distention proximal to this, likely peristalsis rather than obstructing lesion/stricture. This can also be re-evaluated on followup imaging. Thickened somewhat trabeculated appearing bladder wall. Moderate prostatic enlargement. Consider cystitis, also consider chronic bladder outlet obstruction and/or developing neurogenic bladder.
[2018-05-09] MEDS: PRAVACHOL PO SCH (22:31)
[2018-05-10] MEDS ORDERED: ZOFRAN IV PRN (01:31)
[2018-05-10 04:49] LABS: Calcium 9.2 mg/dL (8.4-10.2)
[2018-05-10] MEDS: HumuLIN R SUB-Q SCH ×2 (08:05→12:55)
--- NOTE | 2018-05-10 08:33 | Progress Note ---
Assessment and Plan - Patient Problems (1) NORMA (acute kidney injury) Current Visit: No Status: Acute Plan to address problem: Possible pre-renal in etiology based on symptoms. Cardiology assessment noted with mention of recent ECHO without evidence of volume overload. Avoid nephrotoxins, maintain MAP >65mmHg. ACEi discontinued in the setting of his NORMA. His renal function is stable. Continue current management (2) Hyponatremia Current Visit: Yes Status: Acute Plan to address problem: His symptoms of nausea can be a stimulus for ADH secretion that can worsen the hyponatremia. He is also on chronic HCTZ therapy. Urine electrolytes noted, with low sodium and chloride. TSH levels noted. Previous ECHO done recently per cardiology without any significant abnormalities or evidence of volume overload. Repeat labs this am shows improvement in serum sodium to 129. No acute needs for hypertonic solution at this time. Hyponatremia is likely in the setting of NORMA and pre-renal state. Will continue to monitor. (3) Nausea & vomiting Current Visit: Yes Status: Acute Plan to address problem: Management per primary team. Control of his nausea should also continue to improve his hyponatremia. Per patient nausea and vomiting have decreased. (4) Diabetes mellitus Current Visit: No Status: Chronic Qualifiers: Diabetes mellitus type: type 2 Diabetes mellitus complication status: without complication Qualified Code(s): E11.9 - Type 2 diabetes mellitus without complications Plan to address problem: Diabetes management per primary team recommendations. Will need to obtain better glycemic control. (5) HTN (hypertension) Current Visit: No Status: Chronic Qualifiers: Hypertension type: essential hypertension Qualified Code(s): I10 - Essential (primary) hypertension Plan to address problem: In the setting of his NORMA, suggested that we hold off on ACEi. He was also on HCTZ, which can also be a etiology of his hyponatremia, which is still on hold for now. He is currently being managed on amlodipine. Subjective Date of service: 05/10/18 Interval history: No acute issues overnight. Labs noted. Renal function stable. Serum sodium improving. Objective - Vital Signs Vital signs: Vital Signs - 12hr 05/09/18 05/10/18 05/10/18 22:00 01:03 07:18 Temperature 98.3 F 97.7 F Pulse Rate 82 95 H 85 Pulse Rate [ 82 From Monitor] Respiratory 20 20 18 Rate Blood Pressure 129/78 132/81 O2 Sat by Pulse 98 99 99 Oximetry - General Appearance General appearance: well-nourished, appears stated age EENT: ATNC, PERRL Neck: no JVD, no thyromegaly, supple Respiratory: Present: Clear to Ascultation Cardiology: regular, S1S2 Gastrointestinal: normal Integumentary: no rash, warm and dry Neurologic: no focal deficit Musculoskeletal: other ((-)edema ) Psychiatric: mood/affect appropriate - Lab 05/07/18 22:09 05/10/18 03:50 Most recent lab results Calcium 9.2 mg/dL (8.4-10.2) 05/10/18 03:50 Urine Sodium 18 mmol/L 05/08/18 17:05 - Allied health notes Allied health notes reviewed: nursing
[2018-05-10] MEDS: NORVASC PO SCH (10:09)
[2018-05-10] MEDS: FLOMAX PO SCH (10:09)
[2018-05-10] MEDS: PLAVIX PO SCH (10:09)
[2018-05-10] MEDS: ASPIRIN PO SCH (10:09)
[2018-05-10] MEDS: HEPARIN SUB-Q SCH (10:10)
--- NOTE | 2018-05-10 10:53 | Progress Note ---
Assessment and Plan Nausea vomiting First degree AV block, asymptomatic RBBB and LAFB History of CVA on plavix therapy Hypertension DM Renal failure Cardiac status is stable. Patient will follow up with his primary mill helper in 1-2 weeks of discharge. Subjective Date of service: 05/10/18 Interval history: Patient is sitting up in bed. He has no cardiac complaints. Sinus rhythm with first degree AV block, rate 80s on telemetry Objective Vital Signs Temp Pulse Pulse Resp BP Pulse Ox 05/10/18 10:09 85 126/72 05/10/18 10:00 85 05/10/18 07:18 97.7 F 85 18 132/81 99 05/10/18 01:03 98.3 F 95 H 20 129/78 99 05/09/18 22:00 82 82 20 98 05/09/18 19:26 99.2 F 82 18 118/58 98 05/09/18 13:19 98.2 F 76 20 130/67 100 - Physical Examination General: No Apparent Distress HEENT: Positive: PERRL Cardiac: Positive: Reg Rate and Rhythm Neuro: Positive: Grossly Intact Extremities: Absent: edema - Labs and Meds Comprehensive Metabolic Panel 05/09/18 05/10/18 Range/Units 11:57 03:50 Sodium 129 L 129 L (137-145) mmol/L Potassium 4.4 4.1 (3.6-5.0) mmol/L Chloride 94.0 L 93.4 L (98-107) mmol/L Carbon Dioxide 20 L 22 (22-30) mmol/L BUN 27 H 27 H (9-20) mg/dL Creatinine 1.8 H 1.8 H (0.8-1.5) mg/dL Glucose 212 H 131 H (75-100) mg/dL Calcium 9.5 9.2 (8.4-10.2) mg/dL - Allied health notes Allied health notes reviewed: nursing
--- NOTE | 2018-05-10 13:28 | Discharge Summary ---
Providers - Providers Date of Admission: 05/08/18 03:00 Date of discharge: 05/10/18 Attending physician: MANUEL HARTMANN 05/08/18 05:09 Consult to Physician [CONS] Routine Comment: spoke to dr. hawkins Consulting Provider: RENE HEWITT Physician Instructions: Reason For Exam: NORMA 05/08/18 06:52 Consult to Cardiology [CONS] Urgent Consulting Provider: MAMIE GILMORE Reason For Exam: 2nd degree AVB. Primary care physician: TANKER TRUCK DRIVER Hospitalization Condition: Stable Hospital course: 72-year-old man who presented with nausea and vomiting. PMH: htn, hx of cva, ME,BPH, hx of 1st degree heart block, dm his tree expert is Bill and his EP is Dr Eliazar GREEN dc diuretics and CHE, likely due to vasomotor nephropathy underlying cause is likely intractable n/v Hyponatremia continue NS N/V- intractable likely acute gastroenteritis -antiemtics, obtain KUB to r/o SBO -also get CT A/P after if no acute findings on KUB - DM -cont SSI Heart Block, 1st degree AV block evaluated by Cardiology HTN diuretics and CHE-I were dc, optimize bp meds Disposition: DC-01 TO HOME OR SELFCARE Time spent for discharge: 32 minutes Core Measure Documentation - Palliative Care Palliative Care/ Comfort Measures: Not Applicable - Core Measures Any of the following diagnoses?: none - VTE Discharge Requirements Deep Vein Thrombosis/Pulmonary Embolism Present on Admission: No Has pt received <5 days of overlap therapy or INR<2.0: No Anticoagulant overlap therapy prescribed at discharge: No Contraindication No Overlap Therapy order at DC: Not Indicated Exam - Constitutional Vitals: Temp Pulse Resp BP Pulse Ox 97.7 F 85 18 126/72 99 05/10/18 07:18 05/10/18 10:09 05/10/18 07:18 05/10/18 10:09 05/10/18 07:18 General appearance: Present: no acute distress - EENT Eyes: Present: PERRL, EOM intact ENT: clear oral mucosa - Neck Neck: Present: supple, normal ROM - Respiratory Respiratory effort: normal Respiratory: bilateral: CTA - Cardiovascular Rhythm: regular Heart Sounds: Present: S1 & S2 Peripheral Pulses: within normal limits - Abdominal General gastrointestinal: Present: soft, non-tender, normal bowel sounds - Integumentary Integumentary: Present: clear, warm, dry - Neurologic Neurologic: CNII-XII intact Plan Activity: other (no strenous activity until cleared by pcp) Diet: low salt, diabetic Follow up with: PRIMARY CAREMD [Primary Care Provider] - 3-5 Days MAMIE GILMORE MD [Staff Physician] - 7 Days RENE HEWITT MD [Staff Physician] - 7 Days Forms: Accompanied Note
[2018-05-10 13:51] VITALS: BP 137/71
== END 2018-05-10 15:50 | disposition home health service (06) | DRG 683 ==
LOC: ED 21:36 → 2B-ACE 05-08 03:00
PROVIDERS: ADMIT Internal Medicine; ATTEND Internal Medicine
PROC: 3E0234Z Introduction of Serum, Toxoid and Vaccine into Muscle, Percutaneous Approach (ICD-10-PCS; principal; 2018-05-08)
DX: N17.0 Acute kidney failure with tubular necrosis (principal); E87.1 Hypo-osmolality and hyponatremia; I45.2 Bifascicular block; I13.0 Hypertensive heart and chronic kidney disease with heart failure and stage 1 through stage 4 chronic kidney disease, or unspecified chronic kidney disease; K52.9 Noninfective gastroenteritis and colitis, unspecified; I50.9 Heart failure, unspecified; N40.0 Benign prostatic hyperplasia without lower urinary tract symptoms; N18.9 Chronic kidney disease, unspecified; I44.1 Atrioventricular block, second degree; E11.22 Type 2 diabetes mellitus with diabetic chronic kidney disease; Z86.73 Personal history of transient ischemic attack (TIA), and cerebral infarction without residual deficits; I25.2 Old myocardial infarction; Z79.82 Long term (current) use of aspirin; Z79.899 Other long term (current) drug therapy; Z79.4 Long term (current) use of insulin; Z72.89 Other problems related to lifestyle; Z23 Encounter for immunization
CPT/HCPCS: 36415; 71046; 74018; 74176; 80048; 82436; 82550; 82553; 82962; 83880; 83930; 83935; 84133; 84300; 84443; 84484; 85025; 90732; 93005; 93010; A9270-GY; J1644; J1815

== ENCOUNTER 2020-05-08 12:22 | Emergency (ER) | payer MEDICARE ==
--- NOTE | 2020-05-08 13:07 | Emergency Department Report ---
Blank Doc - Documentation Documentation: 74-year-old male that presents was sent by PCP for abnormal EKG. Patient stated went to see his PCP for physical exam. Was told abnroaml EKG. Denies any CP or SOB. This initial assessment/diagnostic orders/clinical plan/treatment(s) is/are subject to change based on patient's health status, clinical progression and re- assessment by fellow clinical providers in the ED. Further treatment and workup at subsequent clinical providers discretion. Patient/guardians urged not to elope from the ED as their condition may be serious if not clinically assessed and managed. Initial orders include: 1- Patient sent to MAIN ED for further evaluation and treatment 2- cardiac workup
--- NOTE | 2020-05-08 13:43 | XRay Report ---
CHEST 2 VIEWS INDICATION: Chest Pain. COMPARISON: 06/27/2018. FINDINGS: Support devices: None. Heart: Mild cardiac enlargement. Lungs/Pleura: No acute air space or interstitial disease. No significant pleural effusion. IMPRESSION: No acute findings. Signer Name: Axel Dubois MD Signed: 05/08/2020 1:38 PM Workstation Name: [id number]
[2020-05-08 14:01] LABS: Basophils % (Auto) 0.4 % (0.0-1.8); Eosinophils % (Auto) 0.2 % (0.0-4.3); Hematocrit 42.8 % (35.5-45.6); Hemoglobin 14.6 gm/dl (11.8-15.2); Lymphocytes # (Auto) 0.9 K/mm3 (1.2-5.4); Lymphocytes % (Auto) 10.4 % (13.4-35.0); Mean Corpuscular HGB Conc 34 % (32-34); Mean Corpuscular Volume 91 fl (84-94); Monocytes # (Auto) 0.7 K/mm3 (0.0-0.8); Monocytes % (Auto) 8.4 % (0.0-7.3); Platelet Count 222 K/mm3 (140-440); Red Blood Count 4.73 M/mm3 (3.65-5.03); Red Cell Distribution Width 13.7 % (13.2-15.2)
[2020-05-08 14:12] LABS: INR 1.01 (0.87-1.13)
[2020-05-08 14:13] LABS: Partial Thromboplastin Time 30.7 Sec. (24.2-36.6)
[2020-05-08 14:57] LABS: Alanine Aminotransferase 23 units/L (7-56); Albumin 4.7 g/dL (3.9-5); BUN/Creatinine Ratio 13; Blood Urea Nitrogen 27 mg/dL (9-20); Hemolysis Index 16
--- NOTE | 2020-05-08 20:31 | Emergency Department Report ---
ED General Adult HPI - General Chief complaint: Recheck/Abnormal Lab/Rx Stated complaint: ABNORMAL EKG PUI?: No Time Seen by Provider: 05/08/20 13:06 Source: patient, family Mode of arrival: Wheelchair Limitations: No Limitations - History of Present Illness Initial comments: 74-year-old male that presents emergency room with complaints of abnormal EKG. Patient states that he was at his primary care's office today and was having a physical done. Patient states his primary care did a physical and found him to have an abnormal EKG. Patient denies chest pain or shortness of breath. Patient denies any symptoms. Patient states that he was sent here by his primary care but does not have any symptoms. Patient denies headache. Patient denies anxiety. Patient denies diaphoresis. Patient denies dyspnea on exertion. Patient denies any physical complaints. Patient denies recent travel. Patient denies recent international travel. Patient denies exposure to the novel coronavirus. Patient denies sick contacts. Patient denies fever and chills. Patient denies cough. Patient denies diarrhea. Patient denies coming in contact with anybody with symptoms of the novel coronavirus. -: Sudden Severity scale (0 -10): 0 Improves with: none Worsens with: none Associated Symptoms: denies other symptoms. denies: confusion, chest pain, cough, diaphoresis, fever/chills, headaches, loss of appetite, malaise, nausea/vomiting, rash, seizure, shortness of breath, syncope, weakness Treatments Prior to Arrival: none - Related Data Home Medications Medication Instructions Recorded Confirmed Last Taken Amlodipine Besylate [Norvasc] 10 mg PO QAM 06/26/18 06/26/18 Unknown FLUoxetine [PROzac] 20 mg PO QDAY 06/26/18 06/26/18 Unknown Lisinopril [Zestril] 40 mg PO QAM 06/26/18 06/26/18 Unknown Previous Rx's Medication Instructions Recorded Last Taken Type Clopidogrel [Plavix] 75 mg PO QDAY #30 tab 05/10/18 Unknown Rx Tamsulosin [Flomax] 0.4 mg PO QHS #30 tab 05/10/18 Unknown Rx Aspirin 325 mg PO QDAY tablet 06/29/18 Unknown Rx Ergocalciferol [Vitamin D2] 50,000 unit PO Mo #7 capsule 06/29/18 Unknown Rx Insulin Regular, Human [HumuLIN R] 0 unit SQ AC #1 vial 06/29/18 Unknown Rx Pravastatin [Pravachol] 20 mg PO QHS #30 tablet 06/29/18 Unknown Rx amLODIPine 10 mg PO DAILY tablet 06/29/18 Unknown Rx Allergies Allergy/AdvReac Type Severity Reaction Status Date / Time hydrochlorothiazide AdvReac hyponatremi Verified 06/28/18 17:46 a ED Review of Systems ROS: Stated complaint: ABNORMAL EKG Other details as noted in HPI Constitutional: denies: chills, fever Eyes: denies: eye pain, eye discharge, vision change ENT: denies: ear pain, throat pain Respiratory: denies: cough, shortness of breath, wheezing Cardiovascular: denies: chest pain, palpitations Endocrine: no symptoms reported Gastrointestinal: denies: abdominal pain, nausea, diarrhea Genitourinary: denies: urgency, dysuria Musculoskeletal: denies: back pain, joint swelling, arthralgia Skin: denies: rash, lesions Neurological: denies: headache, weakness, paresthesias Psychiatric: denies: anxiety, depression Hematological/Lymphatic: denies: easy bleeding, easy bruising ED Past Medical Hx - Past Medical History Previous Medical History?: Yes Hx Hypertension: Yes Hx CVA: Yes Hx Heart Attack/AMI: Yes (Heart blockage) Hx Diabetes: Yes Hx HIV: No Additional medical history: BPH - Surgical History Past Surgical History?: Yes - Family History Family history: no significant - Social History Smoking Status: Never Smoker Substance Use Type: None - Medications Home Medications: Home Medications Medication Instructions Recorded Confirmed Last Taken Type Clopidogrel [Plavix] 75 mg PO QDAY #30 tab 05/10/18 06/26/18 Unknown Rx Tamsulosin [Flomax] 0.4 mg PO QHS #30 tab 05/10/18 06/26/18 Unknown Rx Amlodipine Besylate [Norvasc] 10 mg PO QAM 06/26/18 06/26/18 Unknown History FLUoxetine [PROzac] 20 mg PO QDAY 06/26/18 06/26/18 Unknown History Lisinopril [Zestril] 40 mg PO QAM 06/26/18 06/26/18 Unknown History Aspirin 325 mg PO QDAY tablet 06/29/18 Unknown Rx Ergocalciferol [Vitamin D2] 50,000 unit PO Mo #7 capsule 06/29/18 Unknown Rx Insulin Regular, Human [HumuLIN R] 0 unit SQ AC #1 vial 06/29/18 Unknown Rx Pravastatin [Pravachol] 20 mg PO QHS #30 tablet 06/29/18 Unknown Rx amLODIPine 10 mg PO DAILY tablet 06/29/18 Unknown Rx ED Physical Exam - General Limitations: No Limitations General appearance: alert, in no apparent distress - Head Head exam: Present: atraumatic, normocephalic - Eye Eye exam: Present: normal appearance, PERRL Pupils: Present: normal accommodation - ENT ENT exam: Present: mucous membranes moist - Neck Neck exam: Present: normal inspection - Respiratory Respiratory exam: Present: normal lung sounds bilaterally. Absent: respiratory distress, wheezes, rales - Cardiovascular Cardiovascular Exam: Present: regular rate, normal rhythm. Absent: systolic murmur, diastolic murmur, rubs, gallop - GI/Abdominal GI/Abdominal exam: Present: soft, normal bowel sounds - Rectal Rectal exam: Present: deferred - Extremities Exam Extremities exam: Present: normal inspection - Back Exam Back exam: Present: normal inspection - Neurological Exam Neurological exam: Present: alert, oriented X3 - Psychiatric Psychiatric exam: Present: normal affect, normal mood - Skin Skin exam: Present: warm, dry, intact, normal color. Absent: rash ED Course Vital Signs 05/08/20 05/08/20 05/08/20 13:06 21:09 21:56 Temperature 98.1 F Pulse Rate 73 87 Respiratory 16 18 18 Rate Blood Pressure 173/85 Blood Pressure 163/80 [Left] O2 Sat by Pulse 99 100 Oximetry - Reevaluation(s) Reevaluation #1: I discussed all results and clinical findings with patient. I discussed plan of care with patient. Patient agrees with plan of care. Patient is stable for discharge. Patient will be discharged home. Patient given discharge instructions. Patient voiced understanding of discharge instructions. 05/08/20 21:33 ED Medical Decision Making - Lab Data Result diagrams: 05/08/20 13:34 05/08/20 13:34 - EKG Data -: EKG Interpreted by Me EKG shows normal: sinus rhythm, intervals, ST-T waves Rate: normal - EKG Data Interpretation: other ([place] deviation, right bundle branch block, left fascicular block.) - Radiology Data Radiology results: report reviewed, image reviewed interpreted by me: Chest x-ray: No pneumonia, no pneumothorax, no fractures no soft tissue changes, clear lungs. No acute findings. CHEST 2 VIEWS INDICATION: Chest Pain. COMPARISON: 06/27/2018. FINDINGS: Support devices: None. Heart: Mild cardiac enlargement. Lungs/Pleura: No acute air space or interstitial disease. No significant pleural effusion. IMPRESSION: No acute findings. - Medical Decision Making Patient is a 74-year-old male that presents emergency room after being sent here by his primary care for an abnormal EKG. Patient found to have on EKG a right bundle branch block and a axis deviation. Patient's finding on the EKG are chronic and there are no acute findings or ST changes on his EKG. Patient is stable. Patient is stable to follow-up with a general accounting clerk as an outpatient. Patient's labs are unremarkable except for chronic kidney disease findings. Patient already has a weather forcaster. Patient referred back to his weather forcaster for further evaluation treatment. Patient is stable for discharge. Patient will be discharged home. Patient not require any further emergency medical inpatient care. - Differential Diagnosis Abnormal EKG, electrolyte imbalance, Critical care attestation.: If time is entered above; I have spent that time in minutes in the direct care of this critically ill patient, excluding procedure time. ED Disposition Clinical Impression: Abnormal EKG, Chronic kidney disease, stage III (moderate), Hyponatremia Disposition: DC-01 TO HOME OR SELFCARE Is pt being admited?: No Does the pt Need Aspirin: No Condition: Stable Instructions: Chronic Kidney Disease (ED) Additional Instructions: Patient to follow-up with primary care in 2 to 3 days. Patient to follow-up with cardiology in 2 to 3 days. Patient to follow-up with nephrology in 2 to 3 days. Patient to eat a renal, heart diet. Patient eat a low-salt diet. Patient to rest. Patient to increase water. Patient to avoid strenuous exercise or heavy lifting until cleared by cardiology. Patient to take Tylenol as needed for pain. Patient to continue all medications. Patient to return to the ER if condition worsens, changes or new symptoms arise. Referrals: [facility] MD MEGHAN [Primary Care Provider] - 2-3 Days SELENA SOLOMON MD [Staff Physician] - 3-5 Days RAS TREVINO MD [Staff Physician] - 2-3 Days Time of Disposition: 21:41
[2020-05-08 21:57] VITALS: BP 163/80
== END 2020-05-08 21:56 | disposition home or self-care (01) ==
LOC: ED 12:22
DX: R94.31 Abnormal electrocardiogram [ECG] [EKG] (principal); E87.1 Hypo-osmolality and hyponatremia; E11.22 Type 2 diabetes mellitus with diabetic chronic kidney disease; I13.10 Hypertensive heart and chronic kidney disease without heart failure, with stage 1 through stage 4 chronic kidney disease, or unspecified chronic kidney disease; N18.3 Chronic kidney disease, stage 3 (moderate); Z86.73 Personal history of transient ischemic attack (TIA), and cerebral infarction without residual deficits; Z79.4 Long term (current) use of insulin; Z79.899 Other long term (current) drug therapy; Z88.8 Allergy status to other drugs, medicaments and biological substances
CPT/HCPCS: 36415; 71046; 80053; 84484; 85025; 85610; 85730; 93005

== ENCOUNTER 2021-01-01 22:28 | Emergency (ER) | payer MEDICARE ==
[2021-01-02 01:36] LABS: Basophils % (Auto) 0.4 % (0.0-1.8); Eosinophils # (Auto) 0.1 K/mm3 (0.0-0.4); Eosinophils % (Auto) 0.7 % (0.0-4.3); Hematocrit 39.7 % (35.5-45.6); Hemoglobin 14.1 gm/dl (11.8-15.2); Lymphocytes # (Auto) 1.2 K/mm3 (1.2-5.4); Lymphocytes % (Auto) 10.6 % (13.4-35.0); Mean Corpuscular HGB Conc 36 % (32-34); Mean Corpuscular Volume 89 fl (84-94); Monocytes % (Auto) 8.7 % (0.0-7.3); Platelet Count 224 K/mm3 (140-440); Red Blood Count 4.44 M/mm3 (3.65-5.03); Red Cell Distribution Width 13.8 % (13.2-15.2)
[2021-01-02 01:57] LABS: Calcium 8.9 mg/dL (8.4-10.2)
[2021-01-02 02:10] LABS: Bilirubin,Urine NEG (Negative); Blood,Urine LG (Negative); Color,Urine Yellow (Yellow); Mucus,Urine FEW /HPF; Urobilinogen,Urine < 2.0 mg/dL (<2.0)
[2021-01-02] MEDS ORDERED: SODIUM CHLORIDE 0.9% 1000 ML 1,000 ML IV ONE ×2 (03:02→06:30)
[2021-01-02] MEDS ORDERED: cefTRIAXone/NS 1 GM/50 ML 1 GM/50 ML BAG IV ONE ×2 (03:02→06:30)
--- NOTE | 2021-01-02 03:53 | Cat Scan Report ---
CT ABDOMEN AND PELVIS WITHOUT CONTRAST HISTORY: Patient has had "Gross" Hematuria x 1 day.. COMPARISON: CT abdomen/pelvis from 06/25/2020 TECHNIQUE: CT images of the abdomen and pelvis were obtained without administration of intravenous co ntrast. All CT scans at this location are performed using CT dose reduction for ALARA by means of au tomated exposure control. FINDINGS: Lungs/bones: Lung bases are clear. There are degenerative changes in the spine and pelvis with no ac kaibab osseous abnormality identified. Abdomen/pelvis: The liver, gallbladder, spleen, pancreas, adrenals, and proximal GI tract appear unr emarkable. Left kidney contains a simple cyst in the midpole region. The kidneys are otherwise unremarkable with no stone disease, mass, or hydronephrosis. The prostate is enlarged and indents the bladder base. There is mild smooth circumferential bladder w all thickening once again with no internal stone disease. No pelvic free fluid or acute colonic abnormality identified. The appendix is normal. IMPRESSION: 1. Findings suggestive of mild chronic urinary outlet obstruction. 2. Otherwise unremarkable exam. Signer Name: Sunny iTrado MD Signed: 01/02/2021 3:48 AM Workstation Name: [id number]
--- NOTE | 2021-01-02 06:24 | Emergency Department Report ---
ED General Adult HPI - General Chief complaint: Urogenital-Male Stated complaint: URINATING BLOOD/PAINFUL Time Seen by Provider: 01/02/21 06:14 Source: patient Mode of arrival: Ambulatory Limitations: No Limitations - History of Present Illness Initial comments: Patient is a 75-year-old male sent from [facility] for evaluation of hematuria since yesterday. Patient himself denies complaints, denies abdominal pain, denies nausea vomiting diarrhea, denies fever. Severity scale (0 -10): 0 - Related Data Home Medications Medication Instructions Recorded Confirmed Last Taken Amlodipine Besylate [Norvasc] 10 mg PO QAM 06/26/18 06/25/20 Unknown Lisinopril [Zestril] 40 mg PO QAM 06/26/18 06/25/20 Unknown Previous Rx's Medication Instructions Recorded Last Taken Type Insulin Regular, Human [HumuLIN R] 0 unit SQ AC #1 vial 06/29/18 Unknown Rx Aspirin 325 mg PO QDAY #30 tablet 06/28/20 Unknown Rx Clopidogrel [Plavix] 75 mg PO QDAY #30 tab 06/28/20 Unknown Rx Ergocalciferol [Vitamin D2] 50,000 unit PO Mo #7 capsule 06/28/20 Unknown Rx FLUoxetine [PROzac] 20 mg PO QDAY #30 cap 06/28/20 Unknown Rx Pravastatin [Pravachol] 20 mg PO QHS #30 tablet 06/28/20 Unknown Rx Tamsulosin [Flomax] 0.4 mg PO QHS #30 tab 06/28/20 Unknown Rx amLODIPine 10 mg PO DAILY #30 tablet 06/28/20 Unknown Rx levoFLOXacin [Levaquin] 750 mg PO Q48H #4 tablet 06/28/20 Unknown Rx levoFLOXacin [Levaquin TAB] 500 mg PO QDAY #7 tablet 01/02/21 Unknown Rx Allergies Allergy/AdvReac Type Severity Reaction Status Date / Time hydrochlorothiazide AdvReac hyponatremi Verified 06/28/18 17:46 a ED Review of Systems ROS: Stated complaint: URINATING BLOOD/PAINFUL Other details as noted in HPI Comment: All other systems reviewed and negative ED Past Medical Hx - Past Medical History Previous Medical History?: Yes Hx Hypertension: Yes Hx CVA: Yes Hx Heart Attack/AMI: No Hx Congestive Heart Failure: Yes Hx Diabetes: Yes Hx Deep Vein Thrombosis: Yes Hx Liver Disease: No Hx Renal Disease: No Hx of Cancer: Yes (Prostate) Hx Arthritis: No Hx Seizures: No Hx Kidney Stones: No Hx Dementia: No Hx HIV: No Additional medical history: BPH - Surgical History Past Surgical History?: No Hx Coronary Stent: No Hx Pacemaker: No Hx Internal Defibrillator: No - Social History Smoking Status: Never Smoker Substance Use Type: None - Medications Home Medications: Home Medications Medication Instructions Recorded Confirmed Last Taken Type Amlodipine Besylate [Norvasc] 10 mg PO QAM 06/26/18 06/25/20 Unknown History Lisinopril [Zestril] 40 mg PO QAM 06/26/18 06/25/20 Unknown History Insulin Regular, Human [HumuLIN R] 0 unit SQ AC #1 vial 06/29/18 06/25/20 Unknown Rx Aspirin 325 mg PO QDAY #30 tablet 06/28/20 Unknown Rx Clopidogrel [Plavix] 75 mg PO QDAY #30 tab 06/28/20 Unknown Rx Ergocalciferol [Vitamin D2] 50,000 unit PO Mo #7 capsule 06/28/20 Unknown Rx FLUoxetine [PROzac] 20 mg PO QDAY #30 cap 06/28/20 Unknown Rx Pravastatin [Pravachol] 20 mg PO QHS #30 tablet 06/28/20 Unknown Rx Tamsulosin [Flomax] 0.4 mg PO QHS #30 tab 06/28/20 Unknown Rx amLODIPine 10 mg PO DAILY #30 tablet 06/28/20 Unknown Rx levoFLOXacin [Levaquin] 750 mg PO Q48H #4 tablet 06/28/20 Unknown Rx levoFLOXacin [Levaquin TAB] 500 mg PO QDAY #7 tablet 01/02/21 Unknown Rx ED Physical Exam - General Limitations: No Limitations General appearance: alert, in no apparent distress - Head Head exam: Present: atraumatic, normocephalic - Eye Eye exam: Present: normal appearance - ENT ENT exam: Present: mucous membranes moist - Neck Neck exam: Present: normal inspection - Respiratory Respiratory exam: Present: normal lung sounds bilaterally. Absent: respiratory distress - Cardiovascular Cardiovascular Exam: Present: regular rate, normal rhythm - GI/Abdominal GI/Abdominal exam: Present: soft, normal bowel sounds - Rectal Rectal exam: Present: deferred - Extremities Exam Extremities exam: Present: normal inspection - Back Exam Back exam: Present: normal inspection - Neurological Exam Neurological exam: Present: alert - Psychiatric Psychiatric exam: Present: normal affect, normal mood - Skin Skin exam: Present: warm, dry, intact, normal color. Absent: rash ED Course Vital Signs 01/02/21 01/02/21 01/02/21 00:21 06:40 09:04 Temperature 98.5 F 98.1 F Pulse Rate 79 80 74 Respiratory 18 16 Rate Blood Pressure 173/89 Blood Pressure 174/89 174/93 [Left] O2 Sat by Pulse 99 100 98 Oximetry - Reevaluation(s) Reevaluation #1: 01/02/21 09:18 Creatinine value similar to previous creatinine values. Urine culture sent. Patient treated with IV normal saline 1 L x 1 for mild electrolyte abnormality noted on BMP, treated with Rocephin 1 g IV x1 for acute cystitis versus prostatitis. On reevaluation, patient in no acute distress, abdomen remains soft nontender, patient remains nontoxic-appearing able to produce urine without obstruction. 01/02/21 09:19 ED Medical Decision Making - Lab Data Result diagrams: 01/02/21 01:14 01/02/21 01:14 Labs 01/02/21 01/02/21 01/02/21 01:14 01:14 Unknown WBC 11.2 H RBC 4.44 Hgb 14.1 Hct 39.7 MCV 89 MCH 32 MCHC 36 H RDW 13.8 Plt Count 224 Lymph % (Auto) 10.6 L [place] % (Auto) 8.7 H Eos % (Auto) 0.7 Baso % (Auto) 0.4 Lymph # (Auto) 1.2 [place] # (Auto) 1.0 H Eos # (Auto) 0.1 Baso # (Auto) 0.0 Seg Neutrophils % 79.6 H Seg Neutrophils # 8.9 H Sodium 131 L Potassium 4.3 Chloride 96.8 L Carbon Dioxide 22 Anion Gap 17 BUN 34 H Creatinine 2.3 H Estimated GFR 34 BUN/Creatinine Ratio 15 Glucose 111 H Calcium 8.9 Urine Color Yellow Urine Turbidity Slightly-cloudy Urine pH 6.0 Ur Specific [place] 1.005 Urine Protein 100 mg/dl Urine Glucose (UA) Neg Urine Ketones Neg Urine Blood Lg Urine Nitrite Neg Urine Bilirubin Neg Urine Urobilinogen < 2.0 Ur Leukocyte Esterase Mod Urine WBC (Auto) 25.0 H Urine RBC (Auto) 8.0 U Epithel Cells (Auto) < 1.0 Urine Mucus Few Vital Signs 01/02/21 01/02/21 01/02/21 00:21 06:40 09:04 Temperature 98.5 F 98.1 F Pulse Rate 79 80 74 Respiratory 18 16 Rate Blood Pressure 173/89 Blood Pressure 174/89 174/93 [Left] O2 Sat by Pulse 99 100 98 Oximetry - Radiology Data Radiology results: report reviewed CT ABDOMEN AND PELVIS WITHOUT CONTRAST HISTORY: Patient has had "Gross" Hematuria x 1 day.. COMPARISON: CT abdomen/pelvis from 06/25/2020 TECHNIQUE: CT images of the abdomen and pelvis were obtained without administration of intravenous contrast. All CT scans at this location are performed using CT dose reduction for ALARA by means of automated exposure control. FINDINGS: Lungs/bones: Lung bases are clear. There are degenerative changes in the spine and pelvis with no acute osseous abnormality identified. Abdomen/pelvis: The li raz, gallbladder, spleen, pancreas, adrenals, and proximal GI tract appear unremarkable. Left kidney contains a simple cyst in the midpole region. The kidneys are otherwise unremarkable with no stone disease, mass, or hydronephrosis. The prostate is enlarged and indents the bladder base. There is mild smooth circumferential bladder wall thickening once again with no internal stone disease. No pelvic free fluid or acute colonic abnormality identified. The appendix is normal. IMPRESSION: 1. Findings suggestive of mild chronic urinary outlet obstruction. 2. Otherwise unremarkable exam. Signer Name: Sunny Tirado MD Signed: 01/02/2021 2:48 AM Workstation Name: [id number] Critical care attestation.: If time is entered above; I have spent that time in minutes in the direct care of this critically ill patient, excluding procedure time. ED Disposition Clinical Impression: Acute cystitis, Hematuria Disposition: DC-01 TO HOME OR SELFCARE Is pt being admited?: No Condition: Stable Prescriptions: levoFLOXacin [Levaquin TAB] 500 mg PO QDAY #7 tablet Referrals: PRIMARY CAREMD [Primary Care Provider] - 3-5 Days Forms: Accompanied Note
[2021-01-02 09:05] VITALS: BP 174/93
== END 2021-01-02 09:05 | disposition home or self-care (01) ==
LOC: ED 22:28
DX: N30.01 Acute cystitis with hematuria (principal); I11.0 Hypertensive heart disease with heart failure; I50.9 Heart failure, unspecified; E11.9 Type 2 diabetes mellitus without complications; Z86.73 Personal history of transient ischemic attack (TIA), and cerebral infarction without residual deficits; Z79.899 Other long term (current) drug therapy; Z79.4 Long term (current) use of insulin; Z88.8 Allergy status to other drugs, medicaments and biological substances
CPT/HCPCS: 36415; 74176; 80048; 81001; 85025; 87086; 96365; 99284; J0696; J7030

== ENCOUNTER 2021-04-23 15:05 | Outpatient (CLI) | payer MEDICARE ==
[2021-04-23 16:47] LABS: Calcium 9.2 mg/dL (8.4-10.2)
[2021-04-23 16:49] LABS: Basophils % (Auto) 0.4 % (0.0-1.8); Eosinophils % (Auto) 0.7 % (0.0-4.3); Hematocrit 41.9 % (35.5-45.6); Hemoglobin 14.3 gm/dl (11.8-15.2); Lymphocytes # (Auto) 1.1 K/mm3 (1.2-5.4); Lymphocytes % (Auto) 15.6 % (13.4-35.0); Mean Corpuscular HGB Conc 34 % (32-34); Mean Corpuscular Volume 90 fl (84-94); Monocytes # (Auto) 0.7 K/mm3 (0.0-0.8); Monocytes % (Auto) 10.5 % (0.0-7.3); Platelet Count 224 K/mm3 (140-440); Red Blood Count 4.63 M/mm3 (3.65-5.03); Red Cell Distribution Width 13.8 % (13.2-15.2)
[2021-04-24 15:20] LABS: Bilirubin,Urine NEG (Negative); Blood,Urine NEG (Negative); Color,Urine Straw (Yellow); RBC,Urine < 1.0 /HPF (0.0-6.0); Urobilinogen,Urine < 2.0 mg/dL (<2.0); WBC,Urine < 1.0 /HPF (0.0-6.0)
[2021-04-27 12:15] LABS: Myeloperoxidase Antibody <1.0 AI (<1.0)
[2021-04-28 02:20] LABS: Albumin 3.9 g/dL (3.8-4.8); Gamma Globulin 1.1 g/dL (0.8-1.7)
[2021-04-28 12:07] LABS: Vitamin D, 25-OH, D2 18 ng/mL
[2021-05-13 08:32] LABS: HIV-1 Antibody Differentiation SEE SCANNED RESULT; HIV-2 Antibody Differentiation SEE SCANNED RESULT
[2021-05-13 08:32] LABS: Albumin SEE SCANNED RESULT; Creatinine, Random Urine SEE SCANNED RESULT; Protein/Creatinine Ratio SEE SCANNED RESULT
[2021-05-13 08:33] LABS: Abnormal Protein Band 1 SEE SCANNED RESULT; Abnormal Protein Band 2 SEE SCANNED RESULT; Gamma Globulin SEE SCANNED RESULT; Interpretation SEE SCANNED RESULT
== END 2021-04-23 15:06 | disposition home or self-care (01) ==
LOC: LAB 15:05
PROVIDERS: ATTEND Internal Medicine Nephrology
DX: N18.32 Chronic kidney disease, stage 3b (principal); N25.81 Secondary hyperparathyroidism of renal origin
CPT/HCPCS: 36415; 80048; 81001; 82306; 83516; 83520; 83970; 84100; 84165; 84166; 85025; 86021; 86160; 86225; 86334; 86689; 86803; 87350

== ENCOUNTER 2021-05-05 16:08 | Outpatient (CLI) | payer MEDICARE ==
[2021-05-05 17:00] LABS: Basophils % (Auto) 0.6 % (0.0-1.8); Eosinophils % (Auto) 0.5 % (0.0-4.3); Hematocrit 41.6 % (35.5-45.6); Hemoglobin 14.3 gm/dl (11.8-15.2); Lymphocytes # (Auto) 0.8 K/mm3 (1.2-5.4); Lymphocytes % (Auto) 13.1 % (13.4-35.0); Mean Corpuscular HGB Conc 34 % (32-34); Mean Corpuscular Volume 90 fl (84-94); Monocytes # (Auto) 0.7 K/mm3 (0.0-0.8); Monocytes % (Auto) 11.6 % (0.0-7.3); Platelet Count 199 K/mm3 (140-440); Red Blood Count 4.63 M/mm3 (3.65-5.03); Red Cell Distribution Width 13.7 % (13.2-15.2)
[2021-05-05 17:23] LABS: Calcium 8.9 mg/dL (8.4-10.2)
[2021-05-06 14:23] LABS: Bilirubin,Urine NEG (Negative); Blood,Urine NEG (Negative); Color,Urine Yellow (Yellow); Mucus,Urine FEW /HPF; Urobilinogen,Urine < 2.0 mg/dL (<2.0); WBC,Urine < 1.0 /HPF (0.0-6.0)
[2021-05-06 14:29] LABS: Creatinine,Urine 79.7 mg/dL (0.1-20.0); Protein/Creatinine Ratio,Urine 0.79
[2021-05-07 21:32] LABS: Myeloperoxidase Antibody <1.0 AI (<1.0)
[2021-05-09 05:50] LABS: Albumin 3.9 g/dL (3.8-4.8); Gamma Globulin 1.1 g/dL (0.8-1.7)
[2021-05-10 13:14] LABS: Vitamin D, 25-OH, D2 24 ng/mL
== END 2021-05-05 16:09 | disposition home or self-care (01) ==
LOC: LAB 16:08
PROVIDERS: ATTEND Internal Medicine Nephrology
DX: N18.32 Chronic kidney disease, stage 3b (principal); N25.81 Secondary hyperparathyroidism of renal origin
CPT/HCPCS: 36415; 80048; 81001; 82306; 82570; 83970; 84100; 84156; 84165; 84166; 85025; 86021; 86160; 86225; 86334; 86689; 86803; 87350

== ENCOUNTER 2021-05-23 10:54 | Inpatient (IN) | payer MEDICARE ==
[2021-05-23] MEDS ORDERED: MECLIZINE 25 MG TAB PO ONE ×2 (12:14→16:00)
--- NOTE | 2021-05-23 12:17 | Event Note ---
ED Screening Note ED Screening Note: Patient is a 75-year-old male who presents emergency room with complaints of dizziness that began at 12 PM yesterday He states that it feels like the room is spinning He states it is worse when he lays down He has associated nausea and vomiting He denies any acute numbness, weakness, speech disturbance, vision changes, headache, chest pain, shortness of breath Past medical history of CVA 5 years ago and reports he has mild right-sided deficits Allergy to hydrochlorothiazide This initial assessment/diagnostic orders/clinical plan/treatment(s) is/are subject to change based on patients health status, clinical progression and re- assessment by fellow clinical providers in the ED. Further treatment and workup at subsequent clinical providers discretion. Patient/guardian urged not to elope from the ED as their condition may be serious if not clinically assessed and managed. Initial orders include: Labs, EKG, CT
--- NOTE | 2021-05-23 13:04 | Cat Scan Report ---
CT head/brain wo con INDICATION / CLINICAL INFORMATION: dizziness, n/v, hx of previous CVA. TECHNIQUE: Axial CT imaging of brain was obtained without contrast. Coronal and sagittal reformatted imaging obt ained and reviewed. All CT scans at this location are performed using CT dose reduction for ALARA b y means of automated exposure control. COMPARISON: Comparison is with 04/08/2017 FINDINGS: No intracranial hemorrhage, mass, or midline shift is present. No extra-axial fluid collection or sug gestion of acute territorial infarction. There is prominent microvascular angiopathy bilaterally, as noted on 2017 exam. The ventricular system and basilar cisterns are unremarkable. Intracranial calcif ication of the internal carotid arteries bilaterally is noted. Prominent cerebral and cerebellar atro phy noted. Previously noted left sided pontine infarct is again visualized. Visualized paranasal sinuses and mastoid air cells are well aerated and clear. No calvarial abnormali ty. IMPRESSION: 1. No acute intracranial abnormality. 2. 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 Signer Name: Josiane Osuna MD Signed: 05/23/2021 12:59 PM Workstation Name: [id number]
[2021-05-23 13:47] LABS: Basophils % (Auto) 0.4 % (0.0-1.8); Eosinophils % (Auto) 0.5 % (0.0-4.3); Hematocrit 42.9 % (35.5-45.6); Hemoglobin 14.9 gm/dl (11.8-15.2); Lymphocytes % (Auto) 12.1 % (13.4-35.0); Mean Corpuscular HGB Conc 35 % (32-34); Mean Corpuscular Volume 89 fl (84-94); Monocytes # (Auto) 0.7 K/mm3 (0.0-0.8); Monocytes % (Auto) 8.6 % (0.0-7.3); Platelet Count 192 K/mm3 (140-440); Red Cell Distribution Width 14.2 % (13.2-15.2)
[2021-05-23 13:57] LABS: INR 0.94 (0.87-1.13)
[2021-05-23 13:58] LABS: Partial Thromboplastin Time 33.9 Sec. (24.2-36.6)
[2021-05-23 14:05] LABS: Albumin 4.1 g/dL (3.9-5); Calcium 9.1 mg/dL (8.4-10.2)
--- NOTE | 2021-05-23 15:03 | Emergency Department Report ---
HPI - General Chief Complaint: Dizziness Time Seen by Provider: 05/23/21 12:13 - HPI HPI: Room 37 The patient is a 75-year-old male present with a chief complaint of dizziness. The patient states his symptoms began yesterday with a few episodes of nausea and vomiting. The patient states this morning while lying down he developed dizziness that lasted approximately 3 hours. Patient states that improved after he came to the emergency department. Patient denies ever having chest pain/pressure, shortness of breath or headache. Patient denies any preceding trauma. Patient denies history of fever. Patient denies pain of any type. Patient denies having a history of atrial fibrillation ED Past Medical Hx - Past Medical History Hx Hypertension: Yes Hx CVA: Yes Hx Congestive Heart Failure: Yes Hx Diabetes: Yes Hx Deep Vein Thrombosis: Yes Additional medical history: BPH - Family History Family history: no significant - Social History Smoking Status: Never Smoker Substance Use Type: None (Denies illicit drug use) - Medications Home Medications: Home Medications Medication Instructions Recorded Confirmed Last Taken Type Amlodipine Besylate [Norvasc] 10 mg PO QAM 06/26/18 05/23/21 05/22/21 History Lisinopril [Zestril] 40 mg PO QAM 06/26/18 05/23/21 05/22/21 History Clopidogrel [Plavix] 75 mg PO QDAY #30 tab 06/28/20 05/23/21 05/22/21 Rx Ergocalciferol [Vitamin D2] 50,000 unit PO Mo #7 capsule 06/28/20 05/23/21 05/22/21 Rx amLODIPine 10 mg PO DAILY #30 tablet 06/28/20 05/23/21 05/22/21 Rx Aspirin [Adult Aspirin] 81 mg PO DAILY 05/23/21 05/23/21 05/22/21 History Insulin NPH/Regular [NovoLIN 70/30] 19 units SQ DAILY 05/23/21 05/23/21 05/22/21 History Simvastatin 20 mg PO DAILY 05/23/21 05/23/21 05/22/21 History Spironolactone [Aldactone] 25 mg PO QDAY 05/23/21 05/23/21 05/22/21 History Tamsulosin [Flomax] 0.4 mg PO BID 05/23/21 05/23/21 05/22/21 History Vitamin E 1 tab PO DAILY 05/23/21 05/23/21 05/22/21 History ED Review of Systems ROS: Stated complaint: VOMITING/DIZZINESS Other details as noted in HPI Constitutional: no symptoms reported Eyes: denies: eye pain ENT: denies: throat pain Respiratory: no symptoms reported Cardiovascular: denies: chest pain Endocrine: no symptoms reported Gastrointestinal: nausea, vomiting, constipation. denies: abdominal pain, diarrhea Genitourinary: denies: dysuria Musculoskeletal: denies: back pain Neurological: vertigo. denies: headache Physical Exam - Physical Exam Vital Signs: Vital Signs 05/23/21 11:14 Temperature 98.5 F Pulse Rate 68 Blood Pressure 157/72 [Left] O2 Sat by Pulse 98 Oximetry Physical Exam: GENERAL: The patient is well-developed well-nourished []. [] HEENT: Normocephalic. Atraumatic. Extraocular motions are intact. Patient has moist mucous membranes. NECK: Supple. No meningitic signs are noted. There is no adenopathy noted. CHEST/LUNGS: Clear to auscultation. There is no respiratory distress noted. HEART/CARDIOVASCULAR: Regular. There is no tachycardia. There is no gallop rub or murmur. ABDOMEN: Abdomen is soft, nontender. Patient has normal bowel sounds. There is no abdominal distention. SKIN: There is no rash. There is no edema. There is no diaphoresis. NEURO: The patient is awake, alert, and oriented. The patient is cooperative. The patient has no focal neurologic deficits. The patient has normal speech and gait. MUSCULOSKELETAL: There is no tenderness or deformity. There is no limitation range of motion. There is no evidence of acute injury. ED Course Vital Signs 05/23/21 11:14 Temperature 98.5 F Pulse Rate 68 Blood Pressure 157/72 [Left] O2 Sat by Pulse 98 Oximetry - Consultations Consultation #1: 05/23/21 15:11 Cardiology paged 05/23/21 15:[address] Smith- recommends repeating long rhythm strip at least 2-3 pages long, initiating hydralazine 50 mg p.o. 3 times daily. If the patient is followed by [facility], they should be contacted if not the rhythm strip may be sent to him Consultation #2: 05/23/21 16:53 [employer] Ayad Aguillon paged-states initial EKG appears to be Wenckebach Mobitz 1 however the rhythm strip was unclear. Requested still images of the rhythm strip to be sent 05/23/21 17:23 Rhythm strip images sent. 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 & will call back if necessary after reviewing the images ED Medical Decision Making - Lab Data Result diagrams: 05/23/21 13:31 05/23/21 13:31 Laboratory Tests 05/23/21 05/23/21 05/23/21 13:31 13:31 13:31 WBC 8.6 RBC 4.80 Hgb 14.9 Hct 42.9 MCV 89 MCH 31 MCHC 35 H RDW 14.2 Plt Count 192 Lymph % (Auto) 12.1 L [place] % (Auto) 8.6 H Eos % (Auto) 0.5 Baso % (Auto) 0.4 Lymph # (Auto) 1.0 L [place] # (Auto) 0.7 Eos # (Auto) 0.0 Baso # (Auto) 0.0 Seg Neutrophils % 78.4 H Seg Neutrophils # 6.7 PT 13.2 INR 0.94 APTT 33.9 Sodium 133 L Potassium 4.5 Chloride 99.5 Carbon Dioxide 26 Anion Gap 12 BUN 29 H Creatinine 2.2 H Estimated GFR 36 BUN/Creatinine Ratio 13 Glucose 194 H Calcium 9.1 Magnesium 2.30 Total Bilirubin 0.70 AST 20 ALT 18 Alkaline Phosphatase 60 Total Creatine Kinase 303 H Troponin T NT-Pro-B Natriuret Pep Total Protein 7.4 Albumin 4.1 Albumin/Globulin Ratio 1.2 TSH Free T4 05/23/21 05/23/21 15:08 15:08 WBC RBC Hgb Hct MCV MCH MCHC RDW Plt Count Lymph % (Auto) [place] % (Auto) Eos % (Auto) Baso % (Auto) Lymph # (Auto) [place] # (Auto) Eos # (Auto) Baso # (Auto) Seg Neutrophils % Seg Neutrophils # PT INR APTT Sodium Potassium Chloride Carbon Dioxide Anion Gap BUN Creatinine Estimated GFR BUN/Creatinine Ratio Glucose Calcium Magnesium Total Bilirubin AST ALT Alkaline Phosphatase Total Creatine Kinase Troponin T < 0.010 NT-Pro-B Natriuret Pep 197.2 Total Protein Albumin Albumin/Globulin Ratio TSH 2.650 Free T4 1.18 - EKG Data -: EKG Interpreted by Me Rate: normal - EKG Data Interpretation: other (P waves appear to March out however rate is not consistent with third-degree AV block. Possible Wenckebach) - Radiology Data Radiology results: report reviewed (CT head), image reviewed (CT head) [facility] [address] [place] [address] Cat Scan Report Signed Patient: DENISE KAY MR#: [id number] 37 : 1945 Acct:[id number] Age/Sex: 75 / M ADM Date: 05/23/21 Loc: ED Attending Dr: Ordering Physician: AMARJIT VOGEL Date of Service: 05/23/21 Procedure(s): CT head/brain wo con Accession Number(s): [id number] cc: AMARJIT VOGEL CT head/brain wo con INDICATION / CLINICAL INFORMATION: dizziness, n/v, hx of previous CVA. TECHNIQUE: Axial CT imaging of brain was obtained without contrast. Coronal and sagittal reformatted imaging obtained and reviewed. All CT scans at this location are performed using CT dose reduction for ALARA by means of automated exposure control. COMPARISON: Comparison is with 04/08/2017 FINDINGS: No intracranial hemorrhage, mass, or midline shift is present. No extra-axial fluid collection or suggestion of acute territorial infarction. There is prominent microvascular angiopathy bilaterally, as noted on 2017 exam. The ventricular system and basilar cisterns are unremarkable. Intracranial calcification of the internal carotid arteries bilaterally is noted. Prominent cerebral and cerebellar atrophy noted. Previously noted left sided pontine infarct is again visualized. Visualized paranasal sinuses and mastoid air cells are well aerated and clear. No calvarial abnormality. IMPRESSION: 1. No acute intracranial abnormality. 2. 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 Signer Name: Josiane Osuna MD Signed: 05/23/2021 12:59 PM Workstation Name: [id number] Transcribed By: JR Dictated By: Josiane Osuna MD Electronically Authenticated By: Josiane Osuna MD Signed Date/Time: 05/23/21 1259 DD/ 1255 TD/TT: Print Cancel - Differential Diagnosis A. fib, CVA, ICH, vertigo, Critical care attestation.: If time is entered above; I have spent that time in minutes in the direct care of this critically ill patient, excluding procedure time. ED Disposition Clinical Impression: Dizziness, Abnormal heart rhythm, Chronic renal insufficiency Disposition: ADMITTED INPATIENT Is pt being admited?: Yes Does the pt Need Aspirin: No Condition: Stable Time of Disposition: 17:58 (Hospitalist called (Dr Jarrett))
[2021-05-23] MEDS ORDERED: CLOPIDOGREL 300 MG TAB PO ONE (15:04)
[2021-05-23 16:04] LABS: Free T4 (Free Thyroxine) 1.18 ng/dL (0.76-1.46)
[2021-05-23] MEDS ORDERED: DEXTROSE 50% IN WATER (25GM) 50 ML SYRINGE IV ONE (18:49)
--- NOTE | 2021-05-23 19:39 | History and Physical Report ---
History of Present Illness Date of examination: 05/23/21 Date of admission: 05/23/21 Chief complaint: Dizziness with nausea and vomiting History of present illness: 75-year-old man past medical history diabetes, BPH, hypertension, CVA with rt LE weakness, VT, hyperlipidemia presented to the hospital complaining of dizziness. The patient states his symptoms began yesterday with a few episodes of nausea and vomiting. The patient states yesterday he had couple episodes of nausea vomiting. Today morning he while lying down he developed dizziness that lasted approximately 3 hours. He decided to come to ER for further evaluation. Patient states that dizziness improved after he came to the emergency department. Patient denies ever having chest pain/pressure, shortness of breath or headache. In the ER patient had CT head which showed no acute process except his old infarct. EKG was questionable for second-degree heart block, cardiology was consulted and he was recommended to monitor the patient overnight. Patient will admitted for observation. 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 He is originally from [facility]). denies: smoking, alcohol abuse, prescription drug abuse, IV drug use Family history: diabetes ( of complications of diabetes at age 76), stroke ( of a stroke at age 82) Review of System: Constitutional: no fever, no chills, no weight loss Ears, eyes, nose, mouth and throat: no nasal congestion, no nasal discharge, no sinus pressure, no vision change, no red eye. Neck: No neck pain or rigidity. Cardiovascular: No chest pain, no orthopnea, no palpitations, no leg swelling Respiratory: No shortness of breath, no cough, no congestion, no wheezing Gastrointestinal: no abdominal pain, no nausea, no vomiting Genitourinary : no dysuria, no hematuria Musculoskeletal: no joint swelling or muscle ache Integumentary: no rash, no pruritis Neurological: no parathesias, no numbness, no tingling. Right-sided weakness Endocrine: no cold or heat intolerance, no polyuria or polydipsia Hematologic/Lymphatic: no easy bruising, no easy bleeding, no gland swelling Allergic/Immunologic: no urticaria, no angioedema. Medications and Allergies Allergies Allergy/AdvReac Type Severity Reaction Status Date / Time hydrochlorothiazide AdvReac hyponatremi Verified 05/23/21 11:16 a Home Medications Medication Instructions Recorded Confirmed Last Taken Type Amlodipine Besylate [Norvasc] 10 mg PO QAM 06/26/18 05/23/21 05/22/21 History Lisinopril [Zestril] 40 mg PO QAM 06/26/18 05/23/21 05/22/21 History Clopidogrel [Plavix] 75 mg PO QDAY #30 tab 06/28/20 05/23/21 05/22/21 Rx Ergocalciferol [Vitamin D2] 50,000 unit PO Mo #7 capsule 06/28/20 05/23/21 05/22/21 Rx amLODIPine 10 mg PO DAILY #30 tablet 06/28/20 05/23/21 05/22/21 Rx Aspirin [Adult Aspirin] 81 mg PO DAILY 05/23/21 05/23/21 05/22/21 History Insulin NPH/Regular [NovoLIN 70/30] 19 units SQ DAILY 05/23/21 05/23/21 05/22/21 History Simvastatin 20 mg PO DAILY 05/23/21 05/23/21 05/22/21 History Spironolactone [Aldactone] 25 mg PO QDAY 05/23/21 05/23/21 05/22/21 History Tamsulosin [Flomax] 0.4 mg PO BID 05/23/21 05/23/21 05/22/21 History Vitamin E 1 tab PO DAILY 05/23/21 05/23/21 05/22/21 History Exam - Physical Exam Narrative exam: GENERAL: well-developed and well-nourished AAM lying on bed appeared to be in no discomfort. HEENT: Normocephalic. Atraumatic. No conjunctival congestion or icterus. Patient has moist mucous membranes. NECK: Supple. Trachea midline. CHEST/LUNGS: Clear to auscultated bilaterally, breathing nonlabored. No wheezes crackles or rhonchi. HEART/CARDIOVASCULAR: Regular in rate and rhythm. S1 and S2 positive. ABDOMEN: Abdomen is soft, nontender. Patient has normal bowel sounds. SKIN: There is no rash. Warm and dry. NEURO: rightsided weakness. Follows command. MUSCULOSKELETAL: No joint effusion or tenderness. EXTRIMITY: No edema, no cyanosis or clubbing. PSYCH: Cooperative. - Constitutional Vitals: Temp Pulse Resp BP Pulse Ox 98 F 70 22 176/82 100 05/23/21 14:48 05/23/21 19:01 05/23/21 19:01 05/23/21 19:01 05/23/21 19:01 HEART Score - HEART Score Troponin: Troponin T < 0.010 ng/mL (0.00-0.029) 05/23/21 15:08 Results - Labs CBC & Chem 7: 05/23/21 13:31 05/23/21 13:31 Labs: Abnormal lab results 05/23/21 05/23/21 Range/Units 13:31 13:31 MCHC 35 H (32-34) % Lymph % (Auto) 12.1 L (13.4-35.0) % [place] % (Auto) 8.6 H (0.0-7.3) % Lymph # (Auto) 1.0 L (1.2-5.4) K/mm3 Seg Neutrophils % 78.4 H (40.0-70.0) % Sodium 133 L (137-145) mmol/L BUN 29 H (9-20) mg/dL Creatinine 2.2 H (0.8-1.3) mg/dL Glucose 194 H (75-100) mg/dL Total Creatine Kinase 303 H (55-170) units/L - Imaging and Cardiology CT Scan - head: report reviewed (old left pontine infract) Assessment and Plan Abnormal EKG -second-degree heart block -Patient placed on cardiac nurse specialist, avoid AV yareli blocking agents -Cardiology has been consulted and recommended to monitor the patient for now -We will order for serial EKG and serial troponin Dizziness, CT head unremarkable, continue meclizine as needed -Follow cardiology recommendation, monitor patient on telemetry for now Diabetes mellitus type 2 -Consistent carb diet and SSI Hypertension -Resume home meds, avoid beta-felicia and calcium channel blockers History of BPH, patient on Flomax History of CVA, continue aspirin Plavix and statin CAD with h/o VT, continue aspirin Plavix statin and follow cardiology recommendation hyperlipidemia, continue statin DVT prophylaxis, Lovenox
[2021-05-23 20:11] LABS: Bilirubin,Urine NEG (Negative); Blood,Urine NEG (Negative); Color,Urine Straw (Yellow); Urobilinogen,Urine < 2.0 mg/dL (<2.0); WBC,Urine < 1.0 /HPF (0.0-6.0)
[2021-05-23 20:36] LABS: Protein,Urine >500 mg/dL (Negative)
[2021-05-23] MEDS ORDERED: ACETAMINOPHEN 325 MG TAB PO PRN (20:39)
[2021-05-23] MEDS ORDERED: hydrALAZINE 20 MG/1 ML INJ IV PRN (20:39)
[2021-05-23] MEDS ORDERED: hydrALAZINE 25 MG TAB PO ONE (20:40)
[2021-05-24] MEDS: FAMOTIDINE 10 MG TAB PO SCH ×3 (02:09→21:23)
[2021-05-24] MEDS: HEPARIN 5,000 UNIT/1 ML VIAL SUB-Q SCH ×4 (02:09→21:23)
[2021-05-24] MEDS: TAMSULOSIN 0.4 MG CAP PO SCH ×3 (02:09→21:23)
[2021-05-24] MEDS: hydrALAZINE 25 MG TAB PO SCH ×3 (07:12→21:23)
--- NOTE | 2021-05-24 09:21 | Progress Note ---
Assessment and Plan - Patient Problems (1) Chronic kidney disease, stage III (moderate) Current Visit: No Status: Acute Plan to address problem: Patient with acute on chronic kidney disease. Has history of stage III chronic kidney disease. Exacerbated by prerenal azotemia. Will follow electrolytes correct as required. (2) Heart block Current Visit: No Status: Acute Plan to address problem: Patient second-degree heart block. Avoid beta-felicia or calcium channel felicia. Await any further cardiology recommendations. Asymptomatic at this time. (3) Type 2 diabetes mellitus with diabetic chronic kidney disease Current Visit: No Status: Acute Plan to address problem: Continue current insulin dose. Recent Accu-Chek all within normal limits fair control. Titrate accordingly. (4) HTN (hypertension) Current Visit: No Status: Chronic Plan to address problem: Patient suboptimal control of hypertension. Avoiding beta-felicia or calcium channel felicia. Will titrate hydralazine as indicated. (5) DVT prophylaxis Current Visit: No Status: Acute Subjective Date of service: 05/24/21 Principal diagnosis: Cardiac arrhythmia near syncope Interval history: 75-year-old with a history of diabetes, CVA, hypertension, coronary disease [place] in the past. Presented with acute episode of dizziness associated with nausea and vomiting lasting for approximately 3 hours. Upon work-up in ED patient found to have second-degree heart block. Was admitted for further work-up cardiac arrhythmia. Patient at present stable feels good denies chest pain denies nausea vomiting. Not have any dizziness at this moment. Still has evidence of heart block pulse 54 at present Patient currently up eating doing well. No new concerns at this time. Objective - Constitutional Vitals: Vital Signs - 12hr 05/23/21 05/23/21 05/23/21 21:31 21:45 22:01 Temperature Pulse Rate 70 73 60 Respiratory 14 15 20 Rate Blood Pressure 142/122 142/122 147/67 O2 Sat by Pulse 99 98 100 Oximetry 05/23/21 05/23/21 05/23/21 22:15 22:31 22:45 Temperature Pulse Rate 49 L 58 L 56 L Respiratory 21 21 21 Rate Blood Pressure 147/67 147/67 147/67 O2 Sat by Pulse 100 100 100 Oximetry 05/23/21 05/23/21 05/23/21 23:01 23:15 23:31 Temperature Pulse Rate Respiratory 29 H Rate Blood Pressure 147/67 147/67 147/67 O2 Sat by Pulse 100 100 100 Oximetry 05/23/21 05/24/21 05/24/21 23:45 00:01 00:15 Temperature Pulse Rate Respiratory Rate Blood Pressure 147/67 151/62 151/62 O2 Sat by Pulse 100 99 99 Oximetry 05/24/21 05/24/21 05/24/21 00:31 00:45 01:01 Temperature Pulse Rate Respiratory Rate Blood Pressure 151/62 151/62 151/62 O2 Sat by Pulse 100 95 97 Oximetry 05/24/21 05/24/21 05/24/21 01:15 01:31 01:45 Temperature Pulse Rate Respiratory Rate Blood Pressure 151/62 151/62 151/62 O2 Sat by Pulse 98 98 98 Oximetry 05/24/21 05/24/21 05/24/21 02:01 02:15 02:31 Temperature Pulse Rate Respiratory Rate Blood Pressure 155/74 155/74 155/74 O2 Sat by Pulse 100 98 99 Oximetry 05/24/21 05/24/21 05/24/21 02:45 07:12 08:16 Temperature 98.8 F Pulse Rate 54 L 68 Respiratory Rate Blood Pressure 155/74 134/74 O2 Sat by Pulse 99 Oximetry 05/24/21 05/24/21 08:22 08:31 Temperature Pulse Rate Respiratory Rate Blood Pressure 167/77 167/77 O2 Sat by Pulse 100 100 Oximetry General appearance: Present: no acute distress, well-nourished - EENT Eyes: PERRL, EOM intact ENT: hearing intact, clear oral mucosa Ears: bilateral: normal - Neck Neck: supple, normal ROM - Respiratory Respiratory effort: normal Respiratory: bilateral: CTA - Breasts Breasts: normal - Cardiovascular Rhythm: other (Bradycardia) Heart Sounds: Present: S1 & S2. Absent: gallop, rub Extremities: pulses intact, No edema, normal color, Full ROM - Gastrointestinal General gastrointestinal: Present: soft, non-tender, non-distended, normal bowel sounds - Genitourinary Male genitourinary: normal - Integumentary Integumentary: clear, warm, dry - Musculoskeletal Musculoskeletal: 1, strength equal bilaterally - Neurologic Neurologic: moves all extremities - Psychiatric Psychiatric: memory intact, appropriate mood/affect, intact judgment & insight - Labs CBC & Chem 7: 05/23/21 13:31 05/23/21 13:31 Labs: Abnormal lab results 05/23/21 05/23/21 05/24/21 Range/Units 13:31 13:31 08:20 MCHC 35 H (32-34) % Lymph % (Auto) 12.1 L (13.4-35.0) % [place] % (Auto) 8.6 H (0.0-7.3) % Lymph # (Auto) 1.0 L (1.2-5.4) K/mm3 Seg Neutrophils % 78.4 H (40.0-70.0) % Sodium 133 L (137-145) mmol/L BUN 29 H (9-20) mg/dL Creatinine 2.2 H (0.8-1.3) mg/dL Glucose 194 H (75-100) mg/dL POC Glucose 144 H (70-105) mg/dL Total Creatine Kinase 303 H (55-170) units/L HEART Score - HEART Score Troponin: Troponin T < 0.010 ng/mL (0.00-0.029) 05/24/21 05:01
[2021-05-24] MEDS: INSULIN NPH/REGULAR 70/30 INJ SUB-Q SCH (09:22)
[2021-05-24] MEDS: ASPIRIN EC 81 MG TAB PO SCH (09:51)
[2021-05-24] MEDS: CLOPIDOGREL 75 MG TAB PO SCH (09:51)
[2021-05-24] MEDS: amLODIPine 10 MG TAB PO SCH (09:51)
[2021-05-24] MEDS ORDERED: SPIRONOLACTONE 25 MG TAB PO SCH (10:00)
[2021-05-24] MEDS ORDERED: NON-FORMULARY EACH (Simvastatin [Simvastatin] 20 MG Tablet) PO SCH (10:00)
[2021-05-24] MEDS ORDERED: amLODIPine 10 MG TAB PO SCH (10:00)
[2021-05-24] MEDS ORDERED: VITAMIN E PO SCH (10:00)
[2021-05-24] MEDS ORDERED: TOCOPHEROL 200 UNIT CAP PO SCH (10:00)
[2021-05-24] MEDS ORDERED: LISINOPRIL 40 MG TAB PO SCH (10:00)
--- NOTE | 2021-05-24 16:43 | Consultation ---
DATE OF CONSULTATION: 05/24/2021 HISTORY OF PRESENT ILLNESS: The patient is a 75-year-old male with a history of multiple medical problems including right lower extremity weakness from a previous CVA that occurred a number of years ago. He describes a 1-day history of dizziness, nausea and vomiting. There are no palpitations or syncope. There were no new focal neurologic symptoms. He did not describe any infectious symptoms, chest pain, shortness of breath or edema. His symptoms are better at this time. Cardiology consult was requested because of an abnormal rhythm. 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 He is known to our office. Although he gives no history of coronary artery disease or congestive heart failure. There is some mention of these two entities in the past. He has multiple medical problems including hypertension and diabetes. He has had hyperlipidemia, BPH, DVT and renal insufficiency. PAST HISTORY: OPERATIONS: None. SMOKING: None. ALCOHOL: No heavy use. FAMILY HISTORY: Diabetes, stroke. REVIEW OF SYSTEMS: No other complaints or medical problems. ALLERGIES: HYDROCHLOROTHIAZIDE. MEDICATIONS: See the nurse's list. PHYSICAL EXAMINATION: GENERAL: Well-developed, well-nourished, in no acute distress. Alert, oriented, cooperative. Mental status normal. EYES NOSE AND THROAT: Unremarkable. NECK: Reveals no JVD or bruits. Neck is supple, no masses. LUNGS: Clear. No labored respirations. HEART: Irregular rhythm and grade I systolic murmur. ABDOMEN: Soft, nontender, no masses. EXTREMITIES: No cyanosis, clubbing, edema. Peripheral pulses are intact. NEUROLOGIC: Grossly remarkable for right lower extremity hypokinesia. Note, he states he moves around with a walker. LABORATORY DATA: EKG, sinus rhythm, right bundle branch block, right axis deviation, poor R-wave progression, no acute electrocardiographic changes. There appeared to be PVCs and there is an episode of an irregular rhythm at about 75 beats per minute -- this is possibly an accelerated junctional rhythm. There is no bradycardia or excessive tachycardia. FINAL IMPRESSION: 1. Dizziness, nausea and vomiting: Improved. There is concern for a second stroke. This may be an episode of vertigo. There did not appear to be any hemodynamic reason for him to have these symptoms. 2. Abnormal rhythm with probable Mobitz I second degree AV block, PVCs and possible accelerated junctional rhythm. 3. Hypertension. 4. Diabetes. 5. Chronic kidney disease. 6. Previous stroke. 7. Hyperlipidemia. 8. History of deep vein thrombosis. 9. Vague description of heart failure and coronary artery disease in the medical record. PLAN: Review previous workup. Discussed the rhythm issue with EP. Continue current therapy. Thank you for this consultation. TID: [id number] RECEIPT: [id number] CAMRON/SAT
[2021-05-24] MEDS: PRAVASTATIN 40 MG TAB PO SCH ×2 (21:23)
[2021-05-25] MEDS: HEPARIN 5,000 UNIT/1 ML VIAL SUB-Q SCH (05:11)
[2021-05-25] MEDS: hydrALAZINE 25 MG TAB PO SCH (05:11)
[2021-05-25 09:18] VITALS: BP 152/84
[2021-05-25] MEDS: INSULIN NPH/REGULAR 70/30 INJ SUB-Q SCH (09:31)
[2021-05-25] MEDS: TAMSULOSIN 0.4 MG CAP PO SCH (09:34)
[2021-05-25] MEDS: amLODIPine 10 MG TAB PO SCH (09:34)
[2021-05-25] MEDS: FAMOTIDINE 10 MG TAB PO SCH (09:34)
[2021-05-25] MEDS: CLOPIDOGREL 75 MG TAB PO SCH (09:34)
--- NOTE | 2021-05-25 09:43 | Electrocardiograph Report ---
[facility] Test Date: 2021-05-23 Test Time: 11:21:30 Pat Name: DENISE KAY Department: Room: A472 Gender: M Automatic Clipper: TV : 1945 Requested By: JOSE SANDOVAL Order Number: [id number] Reading MD: Alonzo Isabel Measurements Intervals [place] Rate: 58 P: 10 CO: 476 QRS: -88 QRSD: 156 T: 23 QT: 443 QTc: 435 Interpretive Statements Second degree AV block, Mobitz II Supraventricular bigeminy Left atrial enlargement RBBB and LAFB No previous ECG available for comparison Electronically Signed On 05-25-2021 9:43:32 EDT by Alonzo Isabel
--- NOTE | 2021-05-25 09:44 | Electrocardiograph Report ---
[facility] Test Date: 2021-05-23 Test Time: 14:56:44 Pat Name: DENISE KAY Department: Room: A472 Gender: M Sales And Service Associate: Yisel WELLS RN : 1945 Requested By: MARCELA SANTORO Order Number: [id number] Reading MD: Alonzo Isabel Measurements Intervals [place] Rate: 62 P: [place]: QRS: -84 QRSD: 156 T: 17 QT: 438 QTc: 438 Interpretive Statements Atrial flutter RBBB and LAFB Compared to ECG 05/23/2021 11:36:58 Sinus rhythm no longer present Atrial premature complex(es) no longer present First degree AV block no longer present Electronically Signed On 05-25-2021 9:44:44 EDT by Alonzo Isabel
--- NOTE | 2021-05-25 09:44 | Electrocardiograph Report ---
[facility] Test Date: 2021-05-23 Test Time: 11:36:58 Pat Name: DENISE KAY Department: Room: A472 Gender: M Photography Professor: TV : 1945 Requested By: AISSATOU COX Order Number: [id number] Reading MD: Alonzo Isabel Measurements Intervals [place] Rate: 63 P: 34 [place]: 400 QRS: -89 QRSD: 145 T: 33 QT: 440 QTc: 451 Interpretive Statements Sinus rhythm Supraventricular bigeminy Prolonged [place] interval Probable left atrial enlargement RBBB and LAFB No previous ECG available for comparison Electronically Signed On 05-25-2021 9:44:16 EDT by Alonzo Isabel
[2021-05-25] MEDS: ASPIRIN EC 81 MG TAB PO SCH (09:45)
[2021-05-25] MEDS ORDERED: ERGOCALCIFEROL (VIT D2) 50,000 UNIT CAP PO SCH (10:00)
--- NOTE | 2021-05-25 10:16 | Discharge Summary ---
Providers - Providers Date of Admission: 05/23/21 23:54 Date of discharge: 05/25/21 Attending physician: JOSE SANDOVAL 05/23/21 18:32 Consult to Physician [CONS] Urgent Comment: Consulting Provider: HEAVEN ESCALERA Physician Instructions: Reason For Exam: Dizziness, abnormal EKG Primary care physician: KATIA GARDNER Hospitalization Condition: Stable Hospital course: 75-year-old with a history of diabetes, CVA, hypertension, coronary disease [place] in the past. Presented with acute episode of dizziness associated with nausea and vomiting lasting for approximately 3 hours. Upon work-up in ED patient found to have second-degree heart block. Was admitted for further work-up cardiac arrhythmia. Patient at present stable feels good denies chest pain denies nausea vomiting. Patient remained in second-degree heart block. Follow- up with patient's EP Dr. Alexander. Patient refused pacemaker therapy. Plan avoid beta-blockers avoid AV yareli blocking agents follow-up with current EP cheese sprayer 5 days. Disposition: 01 HOME / SELF CARE / HOMELESS Final Discharge Diagnosis (Prints w/discharge instructions): Second-degree heart block symptomatic bradycardia - Discharge Diagnoses (1) Chronic kidney disease, stage III (moderate) Status: Acute Comment: Patient at baseline. Avoid nephrotoxic agents. (2) Heart block Status: Acute Comment: Second-degree heart block. Bradycardia. Refuses pacemaker follow-up EP cheese sprayer Dr. jose. (3) Type 2 diabetes mellitus with diabetic chronic kidney disease Status: Acute Comment: Fair control. Continue oral hypoglycemics. (4) HTN (hypertension) Status: Chronic (5) DVT prophylaxis Status: Acute Core Measure Documentation - Palliative Care Palliative Care/ Comfort Measures: Not Applicable - Core Measures Any of the following diagnoses?: none Exam - Constitutional Vitals: Temp Pulse Resp BP Pulse Ox 97.9 F 76 18 152/84 98 05/25/21 08:42 05/25/21 08:42 05/25/21 08:42 05/25/21 08:42 05/25/21 08:42 General appearance: Present: no acute distress, well-nourished - EENT Eyes: Present: PERRL ENT: hearing intact, clear oral mucosa - Neck Neck: Present: supple, normal ROM - Respiratory Respiratory effort: normal Respiratory: bilateral: CTA - Cardiovascular Rhythm: other (Bradycardia 56.) Heart Sounds: Present: S1 & S2. Absent: rub, click - Extremities Extremities: pulses symmetrical, No edema Peripheral Pulses: within normal limits - Abdominal General gastrointestinal: Present: soft, non-tender, non-distended, normal bowel sounds Male genitourinary: Present: normal - Integumentary Integumentary: Present: clear, warm, dry - Musculoskeletal Musculoskeletal: gait normal, strength equal bilaterally - Psychiatric Psychiatric: appropriate mood/affect, intact judgment & insight - Neurologic Neurologic: CNII-XII intact, moves all extremities Plan Activity: other (No strenuous exercise.) Weight Bearing Status: Full Weight Bearing Diet: low cholesterol, low salt, diabetic Follow up with: KATIA GARDNER MD [Primary Care Provider] - 7 Days Prescriptions: Aspirin [Adult Aspirin] 81 mg PO DAILY #20 amLODIPine 10 mg PO DAILY #30 tablet Insulin NPH/Regular [NovoLIN 70/30] 19 units SQ DAILY #7 units Clopidogrel [Plavix] 75 mg PO QDAY #30 tab Simvastatin 20 mg PO DAILY #30
--- NOTE | 2021-05-25 14:51 | Consultation ---
History of Present Illness Consult date: 05/25/21 Consult reason: arrhythmia History of present illness: 75M with PMHx of HTN, DM, CKD, and stroke is admitted with dizziness and nausea. EP consulted for recommendations regarding possible AV block. His symptoms of nausea and dizziness are now resolved. He denies any CP, SOB, or syncope. Workup notable for negative serial troponin x4, normal electrolytes, and normal TFTs. CTOH of head without acute process. He has not been on any AV yareli blocking agents. Telemetry review shows SR with frequent Mobitz 1 AV block but no evidence for high grade AV block. On review of prior EKGs in [facility] it appears that patient has history of Mobitz 1 AV block and RBBB on EKG since at least 2018. Past History Past Medical History: diabetes, hypertension, stroke Medications and Allergies Allergies Allergy/AdvReac Type Severity Reaction Status Date / Time hydrochlorothiazide AdvReac hyponatremi Verified 05/23/21 11:16 a Home Medications Medication Instructions Recorded Confirmed Last Taken Type Amlodipine Besylate [Norvasc] 10 mg PO QAM 06/26/18 05/23/21 05/22/21 History Lisinopril [Zestril] 40 mg PO QAM 06/26/18 05/23/21 05/22/21 History Ergocalciferol [Vitamin D2] 50,000 unit PO Mo #7 capsule 06/28/20 05/23/21 05/22/21 Rx Spironolactone [Aldactone] 25 mg PO QDAY 05/23/21 05/23/21 05/22/21 History Tamsulosin [Flomax] 0.4 mg PO BID 05/23/21 05/23/21 05/22/21 History Vitamin E 1 tab PO DAILY 05/23/21 05/23/21 05/22/21 History Aspirin [Adult Aspirin] 81 mg PO DAILY #20 05/25/21 Unknown Rx Clopidogrel [Plavix] 75 mg PO QDAY #30 tab 05/25/21 Unknown Rx Insulin NPH/Regular [NovoLIN 70/30] 19 units SQ DAILY #7 units 05/25/21 Unknown Rx Simvastatin 20 mg PO DAILY #30 05/25/21 Unknown Rx amLODIPine 10 mg PO DAILY #30 tablet 05/25/21 Unknown Rx Active Meds: Active Medications Acetaminophen (Acetaminophen 325 Mg Tab) 650 mg PO Q4H PRN PRN Reason: Pain MILD(1-3)/Fever >100.5/WREN Amlodipine Besylate (Amlodipine 10 Mg Tab) 10 mg PO DAILY [facility] Last Admin: 05/25/21 09:34 Dose: 10 mg Documented by: Aspirin (Aspirin Ec 81 Mg Tab) 81 mg PO DAILY [facility] Last Admin: 05/25/21 09:45 Dose: 81 mg Documented by: Clopidogrel Bisulfate (Clopidogrel 75 Mg Tab) 75 mg PO QDAY [facility] Last Admin: 05/25/21 09:34 Dose: 75 mg Documented by: Ergocalciferol (Ergocalciferol (Vit D2) 50,000 Unit Cap) 50,000 unit PO Mo [facility] Last Admin: 05/25/21 09:34 Dose: 50,000 unit Documented by: Famotidine (Famotidine 10 Mg Tab) 10 mg PO BID [facility] Last Admin: 05/25/21 09:34 Dose: 10 mg Documented by: Heparin Sodium (Porcine) (Heparin 5,000 Unit/1 Ml Vial) 5,000 unit SUB-Q Q8HR [facility] Last Admin: 05/25/21 05:11 Dose: 5,000 unit Documented by: Hydralazine HCl (Hydralazine 20 Mg/1 Ml Inj) 5 mg IV Q30MIN PRN PRN Reason: Hypertension Hydralazine HCl (Hydralazine 25 Mg Tab) 50 mg PO Q8HR [facility] Last Admin: 05/25/21 05:11 Dose: 50 mg Documented by: Insulin Human Isoph/Insulin Regular (Insulin Nph/Regular 70/30 Inj) 19 unit SUB-Q QDDIAB [facility] Last Admin: 05/25/21 09:31 Dose: 19 unit Documented by: Pravastatin Sodium (Pravastatin 40 Mg Tab) 40 mg PO QHS [facility] Last Admin: 05/24/21 21:23 Dose: 40 mg Documented by: Tamsulosin HCl (Tamsulosin 0.4 Mg Cap) 0.4 mg PO BID [facility] Last Admin: 05/25/21 09:34 Dose: 0.4 mg Documented by: Vitamin E (Tocopherol 200 Unit Cap) 200 unit PO QDAY [facility] Last Admin: 05/24/21 09:51 Dose: 200 unit Documented by: Review of Systems All systems: negative Constitutional: no fever Cardiovascular: no chest pain, no syncope Respiratory: no shortness of breath Gastrointestinal: no abdominal pain Physical Examination Vital Signs Temp Pulse BP Pulse Ox 98.5 F 68 157/72 98 05/23/21 11:14 05/23/21 11:14 05/23/21 11:14 05/23/21 11:14 Narrative exam: Constitutional: well developed, in no acute distress Skin: warm and dry to touch, no rash Head: no scleral icterus, atraumatic ENT: ears,nose and throat unremarkable, mucus membrane moist Neck: JVP normal, supple Chest: normal symmetry, clear to auscultation Cardiac: regular rhythm with occasional skipped beats, regular rate, no m urmurs, no gallops, no rubs detected Abdomen: bowel sounds normoactive, soft/nt/nd Extremities & Back: no cyanosis present, no edema observed Psychiatric: normal affect, normal memory Results 05/23/21 13:31 05/23/21 13:31 EKG - SR with Mobitz 1 AV block, occasional PAC, bifascicular block (RBBB + LAFB) 05/2020 Echo - normal LVEF 05/2020 Lexiscan stress MPI - normal perfusion, low risk Assessment and Plan #Mobitz 1 AV block - chronic #Bifascicular block (LAFB + RBBB) on EKG #Dizziness and nausea - resolved #CKD #H/o stroke Telemetry review shows frequent Mobitz 1 AV block but no evidence of high grade AV block. On review of [facility] office records, patient has long-standing history of Mobitz 1 AV block and bifascicular block since at least 2017. TSH is normal, and he has not been on AV yareli blocking agents. His symptoms of dizziness are now resolved and it is unclear whether dizziness is related to AV block. No urgent need for pacemaker at this time. Recommend out-patient follow up for event monitor.
== END 2021-05-25 16:17 | disposition home or self-care (01) | DRG 309 ==
LOC: ED 10:54 → INTOOBSV 23:54 → 4A 23:54 → OBSVTOIN 05-25 10:06
PROVIDERS: ADMIT Internal Medicine; ATTEND Internal Medicine
DX: I44.1 Atrioventricular block, second degree (principal); I13.0 Hypertensive heart and chronic kidney disease with heart failure and stage 1 through stage 4 chronic kidney disease, or unspecified chronic kidney disease; N18.30 Chronic kidney disease, stage 3 unspecified; E11.22 Type 2 diabetes mellitus with diabetic chronic kidney disease; Z86.73 Personal history of transient ischemic attack (TIA), and cerebral infarction without residual deficits; Z86.718 Personal history of other venous thrombosis and embolism; N40.0 Benign prostatic hyperplasia without lower urinary tract symptoms; Z79.01 Long term (current) use of anticoagulants; Z79.4 Long term (current) use of insulin; Z79.899 Other long term (current) drug therapy; Z88.8 Allergy status to other drugs, medicaments and biological substances; I25.10 Atherosclerotic heart disease of native coronary artery without angina pectoris; E78.5 Hyperlipidemia, unspecified; I25.2 Old myocardial infarction
CPT/HCPCS: 36415; 70450; 80053; 81001; 82550; 82962; 83735; 83880; 84439; 84443; 84484; 85025; 85610; 85730; 93005; G0378; A9270-GY; J1644; J1815

== ENCOUNTER 2021-05-29 12:07 | Outpatient (CLI) | payer MEDICARE ==
--- NOTE | 2021-05-29 14:25 | XRay Report ---
X-RAY BONE SURVEY METASTATIC, 16 VIEWS INDICATION / CLINICAL INFORMATION: MYELOMA. COMPARISON: Chest radiograph 06/25/[address] abdomen pelvis 01/02/2021 FINDINGS: Bones: No suspicious osseous lesion identified throughout the visualized osseous structures. Other: The cardiomediastinal silhouette is unremarkable. The lungs are clear. No pleural effusion. No pneumothorax. Signer Name: Misa Drew MD Signed: 05/29/2021 2:20 PM Workstation Name: [id number]
== END 2021-05-29 12:08 | disposition home or self-care (01) ==
LOC: XRAY 12:07
PROVIDERS: ATTEND Internal Medicine Hematology
DX: C90.01 Multiple myeloma in remission (principal)
CPT/HCPCS: 77074

== ENCOUNTER 2021-06-09 14:48 | Outpatient (CLI) | payer MEDICARE ==
[2021-06-09 15:40] LABS: Calcium 8.9 mg/dL (8.4-10.2)
[2021-06-09 15:50] LABS: Hematocrit 41.6 % (35.5-45.6); Hemoglobin 13.8 gm/dl (11.8-15.2); Mean Corpuscular HGB Conc 33 % (32-34); Mean Corpuscular Volume 92 fl (84-94); Platelet Count 207 K/mm3 (140-440); Red Blood Count 4.55 M/mm3 (3.65-5.03); Red Cell Distribution Width 14.3 % (13.2-15.2)
[2021-06-10 14:02] LABS: Bilirubin,Urine NEG (Negative); Blood,Urine NEG (Negative); Color,Urine Straw (Yellow); Urobilinogen,Urine < 2.0 mg/dL (<2.0)
[2021-06-10 14:06] LABS: RBC,Urine < 1.0 /HPF (0.0-6.0); WBC,Urine < 1.0 /HPF (0.0-6.0)
[2021-06-10 18:13] LABS: Creatinine,Urine 53.4 mg/dL (0.1-20.0); Protein/Creatinine Ratio,Urine 0.67
== END 2021-06-09 14:49 | disposition home or self-care (01) ==
LOC: LAB 14:48
PROVIDERS: ATTEND Internal Medicine Nephrology
DX: N18.32 Chronic kidney disease, stage 3b (principal)
CPT/HCPCS: 36415; 80048; 81001; 82570; 83970; 84100; 84156; 85027

== ENCOUNTER 2021-07-21 15:02 | Outpatient (CLI) | payer MEDICARE | END 2021-07-21 15:03 | disposition home or self-care (01) | LOC: LAB 15:02 | PROVIDERS: ATTEND Internal Medicine | DX: R00.1 Bradycardia, unspecified (principal) | CPT/HCPCS: 36415; 84439; 84443 ==

== ENCOUNTER 2021-10-23 14:47 | Outpatient (CLI) | payer OTHER ==
[2021-10-23 15:25] LABS: Basophils % (Auto) 0.4 % (0.0-1.8); Eosinophils # (Auto) 0.1 K/mm3 (0.0-0.4); Eosinophils % (Auto) 1.1 % (0.0-4.3); Hematocrit 42.9 % (35.5-45.6); Hemoglobin 14.3 gm/dl (11.8-15.2); Lymphocytes # (Auto) 1.5 K/mm3 (1.2-5.4); Lymphocytes % (Auto) 18.8 % (13.4-35.0); Mean Corpuscular HGB Conc 33 % (32-34); Mean Corpuscular Volume 90 fl (84-94); Monocytes # (Auto) 0.8 K/mm3 (0.0-0.8); Platelet Count 207 K/mm3 (140-440); Red Blood Count 4.78 M/mm3 (3.65-5.03); Red Cell Distribution Width 13.6 % (13.2-15.2)
[2021-10-23 16:00] LABS: Calcium 8.8 mg/dL (8.4-10.2)
[2021-10-24 11:27] LABS: Bilirubin,Urine NEG (Negative); Blood,Urine NEG (Negative); Color,Urine Yellow (Yellow); Urobilinogen,Urine < 2.0 mg/dL (<2.0)
[2021-10-24 12:28] LABS: Creatinine,Urine 84.3 mg/dL (0.1-20.0); Protein/Creatinine Ratio,Urine 1.04
== END 2021-10-23 14:48 | disposition home or self-care (01) ==
LOC: LAB 14:47
PROVIDERS: ATTEND Internal Medicine Nephrology
DX: N18.32 Chronic kidney disease, stage 3b (principal)
CPT/HCPCS: 36415; 80048; 81001; 82570; 83970; 84100; 84156; 85025

== ENCOUNTER 2022-02-12 12:44 | Outpatient (CLI) | payer MEDICARE ==
[2022-02-12 13:23] LABS: Hematocrit 42.3 % (35.5-45.6); Hemoglobin 14.1 gm/dl (11.8-15.2); Mean Corpuscular HGB Conc 33 % (32-34); Mean Corpuscular Volume 90 fl (84-94); Platelet Count 191 K/mm3 (140-440); Red Blood Count 4.68 M/mm3 (3.65-5.03); Red Cell Distribution Width 13.3 % (13.2-15.2)
[2022-02-12 13:44] LABS: Calcium 8.9 mg/dL (8.4-10.2)
[2022-02-12 13:54] LABS: Bilirubin,Urine NEG (Negative); Blood,Urine NEG (Negative); Color,Urine Yellow (Yellow); Urobilinogen,Urine < 2.0 mg/dL (<2.0)
[2022-02-12 14:33] LABS: Creatinine,Urine 67.2 mg/dL (0.1-20.0); Protein/Creatinine Ratio,Urine 1.43
== END 2022-02-12 12:45 | disposition home or self-care (01) ==
LOC: LAB 12:44
PROVIDERS: ATTEND Internal Medicine Nephrology
DX: N18.32 Chronic kidney disease, stage 3b (principal)
CPT/HCPCS: 36415; 80048; 81001; 82570; 83970; 84100; 84156; 85027

== ENCOUNTER 2022-05-28 14:39 | Outpatient (CLI) | payer MEDICARE ==
[2022-05-28 15:28] LABS: Basophils % (Auto) 0.3 % (0.0-1.8); Eosinophils % (Auto) 0.3 % (0.0-4.3); Hematocrit 42.4 % (35.5-45.6); Hemoglobin 14.4 gm/dl (11.8-15.2); Lymphocytes # (Auto) 1.3 K/mm3 (1.2-5.4); Lymphocytes % (Auto) 15.5 % (13.4-35.0); Mean Corpuscular HGB Conc 34 % (32-34); Mean Corpuscular Volume 89 fl (84-94); Monocytes # (Auto) 0.8 K/mm3 (0.0-0.8); Monocytes % (Auto) 10.2 % (0.0-7.3); Platelet Count 211 K/mm3 (140-440); Red Blood Count 4.78 M/mm3 (3.65-5.03); Red Cell Distribution Width 13.1 % (13.2-15.2)
[2022-05-28 15:45] LABS: WBC,Urine < 1.0 /HPF (0.0-6.0)
[2022-05-28 15:47] LABS: Color,Urine Straw (Yellow); RBC,Urine < 1.0 /HPF (0.0-6.0)
[2022-05-28 15:51] LABS: Creatinine,Urine 50.5 mg/dL (0.1-20.0); Protein/Creatinine Ratio,Urine 1.47
[2022-05-28 15:54] LABS: Calcium 9.2 mg/dL (8.4-10.2)
== END 2022-05-28 14:40 | disposition home or self-care (01) ==
LOC: LAB 14:39
PROVIDERS: ATTEND Internal Medicine Nephrology
DX: N18.32 Chronic kidney disease, stage 3b (principal)
CPT/HCPCS: 36415; 80048; 81001; 82570; 83970; 84100; 84156; 85025